=== PATIENT | female | born 1940 | race African-American/Black ===

== ENCOUNTER 2025-07-16 14:17 | Emergency (ER) | payer MEDICARE, MEDICAID, SELFPAY ==
--- OUTSIDE RECORDS SUMMARY | 2009-03-14 05:30 | XMS_ITS | Continuity of Care Document ---
Author Organization [facility] Address [id number] [place] [address] [address] [place] [address] Phone Care Team Providers Care Lock Plater Name Role Phone Yaya Cai Unavailable Unavailable Procedures Procedure Date Eye Exam & Treatment Eye Exam & Treatment Eye Exam, New Patient Advance Directives Directive Yes / No Effective Date File Name No Information Encounters Encounter Description Practice Location Reason(s) For Visit Diagnoses Date Provider Providers Copied on Encounter [facility], [address] [place] [address] [address], [place], [place], [id number], [place] tel:[phone] [facility] [place] No Information 1 9 Krishnasamy Yaya. [address] [facility] [address], [place], [address], [place]. tel:[phone] [facility], [address] [place] [address] [address], [place], [place], [id number], [place] tel:[phone] SEC [facility] No Information 8 Krishnasamy Yaya. [address] [facility] [address], [place], [address], [place]. tel:[phone] [facility], [address] [place] [address] [address], [place], [place], [id number], [place] tel:[phone] [facility] [place] No Information 4200 7 Greg Woody. [address] [facility] [place], [id number], [place]. tel:[phone] Family History Family Member Type Diagnosis Age At Onset No Information Payers Payer name Insurance type Covered republican ID Nida carpenter(s) Medicaid [facility] [id number] Social History Type Description Quantity Date Captured Comments Sex Female Smoking Status No Information Chief Complaint And Reason For Visit No Information Reason For Referral Reason For Referral No Information History Of Present Illness Encounter Date Complaint History Of Prese nt Illness No Information Functional Status Date Functional Assessmen t No Information Instructions Date Instruction Additional Infor mation No Information Assessments Type Assessment Date No Information Patient Care Teams Name Effective Dates (start - stop) Status Members No Information
--- OUTSIDE RECORDS SUMMARY | 2009-03-14 05:30 | XMS_ITS | Continuity of Care Document ---
Author Organization [facility] Address [address] [place] [address] [address] [place] [address] Phone Care Team Providers Care Rapid Transit Operator Name Role Phone Yaya Cai Unavailable Unavailable Procedures Procedure Date Eye Exam & Treatment Eye Exam & Treatment Eye Exam, New Patient Advance Directives Directive Yes / No Effective Date File Name No Information Encounters Encounter Description Practice Location Reason(s) For Visit Diagnoses Date Provider Providers Copied on Encounter [facility], [address] [place] [address] [address], [place], [place], [id number], [place] tel:[phone] [facility] [place] No Information 1 9 Krishnasamy Yaya. 2421 [facility] [address], [place], [address], [place]. tel:[phone] [facility], [address] [place] [address] [address], [place], [place], [id number], [place] tel:[phone] SEC [facility] No Information 8 Krishnasamy Yaya. [address] [facility] [address], [place], [address], [place]. tel:[phone] [facility], [address] [place] [address] [address], [place], [place], [id number], [place] tel:[phone] [facility] [place] No Information 4200 7 Greg Woody. [address] [facility] [place], [id number], [place]. tel:[phone] Family History Family Member Type Diagnosis Age At Onset No Information Payers Payer name Insurance type Covered libertarian ID Nida carpenter(s) Medicaid [facility] [id number] Social History Type Description Quantity Date Captured [...]
--- OUTSIDE RECORDS SUMMARY | 2024-01-16 07:30 | XMS_ITS ---
Author Organization [facility] Address [address] [facility] [address] [place] [address] Care Team Providers Care Anime Artist Name Role Phone Brady Chas Unavailable [phone] Encounters Encounter Location Date Provider Diagnosis [facility] [address] [facility] [address] [place] [address] 01/16/2024 Chas Abreu Plan Of Treatment No Information Progress Notes * ANNITA SESAYOB: 0 (84 yo F)Acc No.[id number]:01/16/2024 Progress Notes Patient: IAM SALOMON Provider: Estela BEY MD, Davon.Gabriel.C.P, F.A.S.N. :1940 A ge:83 Y S ex:Female Date:01/16/2024 Address:[address] [place], [place] [id number] Subjective: * Chief Complaints: * * Medical History: Objective: * Vitals: Assessment: Plan: * Treatment: * Billing Information: * Visit Code: * Procedure Codes: * Electronic signature of Isak Abreu MD on 07/16/2025 at 02:19 PM CDT Sign off status: Pending * Provider: Estela BEY MD, F.Gabriel.C.P, F.A.S.N. Date: 01/16/2024 Generated for Printing/Faxing/eTransmitting on: 07/16/2025 02:19 PM CDT
--- OUTSIDE RECORDS SUMMARY | 2025-06-20 06:03 | XMS_ITS | Continuity of Care Document ---
Author Organization [facility] Address [address] [place] [phone] Phone Care Team Providers Care Boat Cleaning Supervisor Name Role Phone James BOWLES FACC, Usman Unavailable Unavailab le James BOWLES FACC, Usman Unavailable Unavailab le Procedures Procedure Date PM/ICD REMOTE TECH SERV PM DEVICE INTERROGATE REMOTE ICM DEVICE INTERROGAT REMOTE Advance Directives Directive Yes / No Effective Date File Name No Information Encounters Encounter Description Practice Location Reason(s) For Visit Diagnoses Date Provider Providers Copied on Encounter [facility], [address] [place] [address], [id number], tel:[phone] [facility] [place] Presence of cardiac pacemaker James Hernandez. [address] [place], [place] [address], [place], [id number], . tel:[phone] Referring Provider: David Ramirez, [facility] [place], [address]. tel:[phone] lting Provider: David Ramirez, [facility] [place], [address]. tel:[phone] [facility], [address] [place] [address], [id number], tel:[phone] [facility] [place] Presence of cardiac pacemaker James Hernandez. [facility] [place], [id number], . tel:[phone] Referring Provider: David [address], [place], [address]. tel:[phone] lting Provider: [address], [place], [address]. tel:[phone] Family History Family Member Type Diagnosis Age At Onset No Information Payers Payer name Insurance type Covered republican ID Authoriza tion(s) AARP MEDICARE ADVANTAGE [place]MO [place] [id number] Social History Type Description Quantity Date Captured [...]
--- OUTSIDE RECORDS SUMMARY | 2025-06-20 06:03 | XMS_ITS | Continuity of Care Document ---
Author Organization [facility] Address [address] [place] [address] Phone Care Team Providers Care Travel Agent Name Role Phone James BOWLES FACC, Usman Unavailable Unavailab le James BOWLES FACC, Usman Unavailable Unavailab le Procedures Procedure Date PM/ICD REMOTE TECH SERV PM DEVICE INTERROGATE REMOTE ICM DEVICE INTERROGAT REMOTE Advance Directives Directive Yes / No Effective Date File Name No Information Encounters Encounter Description Practice Location Reason(s) For Visit Diagnoses Date Provider Providers Copied on Encounter [facility], [address] [place] [address], [id number], tel:[phone] [facility] [place] Presence of cardiac pacemaker James Hernandez. [address] [place], [place] [address], [place], [id number], . tel:[phone] Referring Provider: David Ramirez, [facility] [place], [address]. tel:[phone] lting Provider: David Ramirez, [facility] [place], [address]. tel:[phone] [facility], [address] [place] [address], [id number], tel:[phone] [facility] [place] Presence of cardiac pacemaker James Hernandez. [facility] [place], [id number], . tel:[phone] Referring Provider: David [address], [place], [address]. tel:[phone] lting Provider: [address], [place], [address]. tel:[phone] Family History Family Member Type Diagnosis Age At Onset No Information Payers Payer name Insurance type Covered green party ID Authoriza tion(s) [place]AGE [place] [id number] Social History Type Description Quantity Date Captured [...]
--- OUTSIDE RECORDS SUMMARY | 2025-07-16 14:19 | XMS_ITS | Clinical Summary ---
Author Organization [facility] Address [address] [address] Care Team Providers Care Door Repairman Name Role Phone Kirk Amanda MD Primary Care Provider [phone] Allergies Active Allergy Reactions Criticality Noted Date Comments Craig Inhibitors Other (See comments) Low 08/04/2017 Reaction: Amlodipine Vomiting Low 07/26/2014 Aspirin Swelling Medium 01/17/2021 Nifedipine Other (See comments) Low 03/01/2010 Reaction: Nitro Unknown Low 06/30/2014 Nitroglycerin Other (See comments) Low 08/04/2017 Reaction: Penicillin Unknown Low 03/01/2010 Penicillins Unknown 08/04/2017 Propoxyphene Unknown Low 03/01/2010 Valsartan Other (See comments) Low 08/04/2017 Reaction: Medications acetaminophen (TYLENOL) 325 mg tablet Take 2 tablets (650 mg total) by mouth every 6 (six) hours as needed for pain Active atorvastatin (LIPITOR) 40 mg tablet Take 1 tablet (40 mg total) by mouth nightly 30 tablet 3 Active calcitRIOL (ROCALTROL) 0.25 mcg capsule Take 1 capsule (0.25 mcg total) by mouth daily 30 capsule [address] (PROTONIX) 40 mg EC tablet Take 1 tablet (40 mg total) by mouth 2 (two) times a day 60 tablet 3 Active melatonin 5 mg tablet Take 1 tablet (5 mg total) by mouth daily Active furosemide (LASIX) 40 mg tablet Take 0.5 tablets (20 mg total) by mouth daily 30 tablet 1 3 Active ergocalciferol (Vitamin D2) 50,000 unit capsule Take 1 capsule (50,000 Units total) by mouth once a week Active traZODone (DESYREL) 50 mg tablet Take 1 tablet (50 mg total) by mouth nightly Active venlafaxine (EFFEXOR) 50 mg tablet Take 1 tablet (50 mg total) by mouth daily Active diclofenac sodium (VOLTAREN) 1 % gel Apply 2 g topically 4 (four) times a day as needed Active oxygenIndicatio ns:Dyspnea Inhale 2 L/min continuously Active hydrocortisone 2.5 % cream Apply topically 2 (two) times a day 30 g 1 4 Active metFORMIN (GLUCOPHAGE) 500 mg tablet 4 Active fluticasone-ume clidin-vilanter (TRELEGY ELLIPTA) 100-62.5-25 mcg inhaler Inhale 1 puff daily 1 each 4 Active metoprolol XL (TOPROL-XL) 100 mg 24 hr tablet Take 1 tablet (100 mg total) by mouth daily 4 Active ramelteon (ROZEREM) 8 mg tabletIndicatio ns:Sleep-Onset Insomnia Take 1 tablet (8 mg total) by mouth nightly 30 tablet 11 4 Active albuterol HFA (PROVENTIL HFA,VENTOLIN HFA,PROAIR HFA) 90 mcg/actuation inhaler Inhale 2 puffs every 6 (six) hours as needed for wheezing 4 Active Active Problems Problem Noted Date Diagnosed Date Anemia 11/19/2024 Gastrointestinal hemorrhage associated with anorectal source 07/02/2024 Gastrointestinal hemorrhage 07/02/2024 Rectal pain 12/16/2023 Assessment & Plan (12/16/2023 3:31 PM FLAT FOLDER): Patient with rectal pain. She thinks it is secondary to hemorrhoids. Will start her on Anusol cream 3 times daily and make a referral to see alteration hand for further evaluation. Patient denied any rectal bleeding. Chronic respiratory failure with hypoxia 024 Assessment & Plan (12/16/2023 3:32 PM FLAT FOLDER): Patient is maintained on oxygen by nasal cannula at 2 liters/minute Atrial fibrillation with RVR 06/10/2023 Centrilobular emphysema 03/19/2023 Assessment & Plan (12/16/2023 3:30 PM FLAT FOLDER): Continue Symbicort Assessment & Plan (09/15/2023 12:58 PM CDT): Continue Symbicort Assessment & Plan (05/05/2023 12:20 PM CDT): Continue Symbicort Assessment & Plan (04/03/2023 1:37 PM CDT): Resp status stable. Currently on RA. Assessment & Plan (03/24/2023 11:43 AM CDT): Continue O2, RT, nebs/inh as ordered. Resp status at baseline. Assessment & Plan (03/19/2023 3:39 PM CDT): history of smoking, CT chest : Mild centrilobular emphysema, bronchiectasis/bronchiolectasis, and bronchiolar wall thickening, unchanged. Mild scattered regions of confluent ground-glass opacities bilaterally, not significantly changed from the prior exam. Pulmonary recommend outpatient PFTs and split sleep study. Respiratory status currently stable. Continue albuterol p.r.n., Symbicort b.i.d., DuoNeb q.i.d.. Patient was on oxygen previously at home, currently on 1 L oxygen. Monitor respiratory status Bulge of lumbar disc without myelopathy 03/11/20 Lumbar stenosis with neurogenic claudication Chronic diastolic congestive heart failure 03/03 Assessment & Plan (12/16/2023 3:30 PM FLAT FOLDER): Continue Lasix and low-salt diet Assessment & Plan (09/15/2023 12:59 PM CDT): Continue Lasix and low-salt diet Assessment & Plan (05/05/2023 12:19 PM CDT): Continue Lasix and low-salt diet Assessment & Plan (04/10/2023 3:11 PM CDT): Compensated. Off O2, on RA. Continue Lasix daily. Check labs in am. Assessment & Plan (04/03/2023 1:35 PM CDT): Compensated. Continue Lasix, BB. On RA. Assessment & Plan (03/28/2023 12:45 PM CDT): Continues to be compensated with Lasix dosing at once daily. Continue to monitor. Assessment & Plan (03/24/2023 11:46 AM CDT): Remains compensated. Continue Lasix 40mg daily with close monitoring. Assessment & Plan (03/20/2023 2:10 PM CDT): Compensated at this time. Lasix on hold with JENNIFER. Recheck labs in am and if stable resume daily with monitoring. Assessment & Plan (03/18/2023 8:41 PM CDT): Patient presented in ER due to shortness of breath. CT chest findings may represent small airway or vascular disease versus edema. ECHO 03/16: moderate concentric LVH, EF = 65-70%. The right ventricular systolic function is normal. Treated with IV diuretics. Continue Lasix 40 mg b.i.d. Coreg. Monitor lytes, weight renal function. Follows up with her last chalker, Dr. Bradley in [place] Assessment & Plan (03/18/2023 1:52 PM CDT): Continue lasix BID, BB, O2. Wean O2 as able. Monitor lytes & renal fxn. BMI 30.0-30.9,adult 02/13/2023 History of peptic ulcer disease 02/13/2023 Assessment & Plan (02/13/2023 1:46 PM CDT): Patient is asymptomatic. Continue Protonix Dyslipidemia 05/13/2022 Assessment & Plan (12/16/2023 3:30 PM FLAT FOLDER): Controlled on current medications. Continue low-fat diet. Will continue to monitor . Assessment & Plan (09/15/2023 12:59 PM CDT): Controlled on current medications. Continue low-fat diet. Will continue to monitor . Assessment & Plan (05/05/2023 12:19 PM CDT): Controlled on current medications. Continue low-fat diet. Will continue to monitor . Assessment & Plan (03/19/2023 3:42 PM CDT): Continue Lipitor 40 mg daily, encourage low-fat/low carb diet Assessment & Plan (02/13/2023 12:55 PM CDT): Controlled on current medications. Continue low-fat diet. Will continue to monitor . Assessment & Plan (05/13/2022 12:21 PM CDT): Controlled on current medications. Continue low-fat diet. Will continue to monitor . Chronic atrial fibrillation 01/17/2021 Assessment & Plan (12/16/2023 3:30 PM FLAT FOLDER): Rate is controlled. She is off Eliquis because of rectal bleeding. Assessment & Plan (09/15/2023 5:52 PM CDT): Rate is controlled. She is off Eliquis because of rectal bleeding. Assessment & Plan (05/05/2023 12:19 PM CDT): Patient with chronic atrial fibrillation. We gave her samples of Eliquis. Advised to take her medications as prescribed. Advised to follow-up with her last chalker. Patient to check with her last chalker about other options if she can not afford Eliquis Assessment & Plan (03/19/2023 3:32 PM CDT): Heart rate controlled. Continue Eliquis 2.5 mg b.i.d., Coreg 25 mg b.i.d. follow-up cardiology, Dr. Bradley after discharge Assessment & Plan (02/13/2023 12:54 PM CDT): Continue Xarelto. Rate is controlled. Follow-up with the last chalker Assessment & Plan (05/13/2022 12:21 PM CDT): Continue Xarelto. Rate is controlled. Follow-up with the last chalker Assessment & Plan (01/23/2022 2:07 PM FLAT FOLDER): Heart rate is controlled. Resume Xarelto. Advised to follow up with the last chalker Assessment & Plan (03/22/2021 4:42 PM CDT): Rate is controlled and she is on Xarelto and followed by the last chalker Assessment & Plan (01/31/2021 11:56 AM FLAT FOLDER): Rate is not controlled. We added Cardizem. Continue carvedilol. She is on warfarin. Follow up with the last chalker. Assessment & Plan (01/17/2021 12:35 PM FLAT FOLDER): Patient is in AFib. She is on warfarin. She said somebody checks her protime on regular basis but she does not know who that nurse is an which doctor she works 4. I told her that she needs to find out and see what follows her INR. History of CVA (cerebrovascular accident) 2020 Assessment & Plan (12/16/2023 3:31 PM FLAT FOLDER): Patient with chronic dysarthria. Eliquis was stopped by the last chalker because of rectal bleeding. She is on baby aspirin daily. Assessment & Plan (09/15/2023 5:52 PM CDT): Patient with chronic dysarthria. Eliquis was stopped by the last chalker because of rectal bleeding. She is on baby aspirin daily. Assessment & Plan (02/13/2023 12:55 PM CDT): Patient with chronic dysarthria. Continue Xarelto daily Assessment & Plan (05/13/2022 9:01 AM CDT): Patient with chronic dysarthria. Continue Xarelto daily Assessment & Plan (01/23/2022 12:52 PM FLAT FOLDER): Patient has chronic dysarthria. She is maintained on Xarelto Assessment & Plan (03/22/2021 4:41 PM CDT): Patient has dysarthria. She is maintained on Xarelto. No bleeding. Discussed the importance of compliance with medications Assessment & Plan (01/31/2021 11:55 AM FLAT FOLDER): Continue current medications including warfarin. The patient does INR at home. It is done through home care nurse and we will try to reach to them to get the results Assessment & Plan (01/17/2021 12:35 PM FLAT FOLDER): Patient complains of headache and dizziness and she had couple of syncopal episodes when she tried to stand up. Will obtain MRI of the brain for further evaluation. Patient was advised to discuss her symptoms with her last chalker as well. Hypertensive kidney disease with stage 4 chronic kidney disease 12/19/2020 Assessment & Plan (09/15/2023 12:59 PM CDT): Continue current medications. Discussed low-salt diet. Discussed exercise on regular basis. Will continue to monitor Assessment & Plan (05/05/2023 12:20 PM CDT): Continue current medications. Discussed low-salt diet. Discussed exercise on regular basis. Will continue to monitor Assessment & Plan (02/13/2023 12:55 PM CDT): Continue current medications. Discussed low-salt diet. Discussed exercise on regular basis. Will continue to monitor Assessment & Plan (05/13/2022 9:01 AM CDT): Continue current medications. Discussed low-salt diet. Discussed exercise on regular basis. Will continue to monitor Assessment & Plan (01/23/2022 2:07 PM FLAT FOLDER): Will resume all her medications. Continue low-salt diet Assessment & Plan (03/22/2021 4:42 PM CDT): Will add amlodipine 5 mg daily for better control of high blood pressure Assessment & Plan (01/31/2021 11:56 AM FLAT FOLDER): Blood pressure is elevated and the patient has tachycardia. Will add Cardizem 120 mg daily and she will follow-up with last chalker Assessment & Plan (01/17/2021 12:35 PM FLAT FOLDER): Continue current medications. Discussed low-salt diet. Discussed exercise on regular basis. Will continue to monitor Wide-complex tachycardia Sick sinus syndrome Anticoagulation management encounter Lumbar radiculopathy Assessment & Plan (04/10/2023 3:12 PM CDT): Pain controlled. Not current receiving tx. Was issued NOMNC. SS working on dcp. Assessment & Plan (04/01/2023 1:26 PM CDT): Pain controlled. DCP 04/04. Walking 200ft with SBA. Fu with Pain Management outpt. Assessment & Plan (03/24/2023 11:47 AM CDT): Continue PT/OT. Progressing with tx. Walking 150ft with ww Assessment & Plan (03/19/2023 3:27 PM CDT): status post epidural steroid injection on 03/11/[address] Berg. Continue gabapentin + [place]. Pain overall controlled. Monitor Assessment & Plan (03/18/2023 1:53 PM CDT): status post epidural steroid injection on 03/11/[address] Berg. Continue gabapentin + Severn. Stage 4 chronic kidney disease Assessment & Plan (12/16/2023 3:31 PM FLAT FOLDER): Avoid NSAIDs and nephrotoxins and follow-up with the purchasing director Assessment & Plan (09/15/2023 12:59 PM CDT): Avoid NSAIDs and nephrotoxins and follow-up with the purchasing director Assessment & Plan (05/05/2023 12:20 PM CDT): Avoid NSAIDs and nephrotoxins and follow-up with the purchasing director Assessment & Plan (04/10/2023 3:12 PM CDT): Repeat labs in am. Assessment & Plan (04/03/2023 1:36 PM CDT): At baseline. Continue to monitor & outpt Nephrology fu. Assessment & Plan (04/01/2023 1:28 PM CDT): Cr at baseline. Continue fu with nephrology outpt. Resolved Problems Problem Noted Date Diagnosed Date Resolved Date Radiculopathy, lumbar region 03/11/2023 03/18/2023 Duodenal ulcer 11/20/2022 03/18/2023 Pneumonia of right lower lob e due to infectious organism 11/05/2022 03/18/2023 Intractable abdominal pain 11/04/2022 0 03/18/2023 Overview (11/06/2022): Added automatically from request for surgery [id number] Vitamin D deficiency 01/23/2022 023 Assessment & Plan (03/19/2023 3:41 PM CDT): Vitamin-D 115 in 10/2022. Will recheck level next lab Assessment & Plan (01/23/2022 2:08 PM FLAT FOLDER): Continue vitamin-D 95638 units once a week Dermatitis 03/22/2021 04/01/2023 Assessment & Plan (03/22/2021 4:46 PM CDT): Patient was started on TMC cream 0.1% twice daily to be applied on her legs or couple of weeks Shortness of breath 01/17/2021 04/03/20 Assessment & Plan (03/19/2023 3:34 PM CDT): Pulmonary consulted inpatient, recommended outpatient PFTs and split sleep study. Continue albuterol Q 6 p.r.n., Assessment & Plan (03/18/2023 1:53 PM CDT): S/t CHF. Wean O2 as able. Assessment & Plan (03/22/2021 4:45 PM CDT): Patient was started on Lasix and she will have echocardiogram and follow-up with last chalker Assessment & Plan (01/17/2021 12:37 PM FLAT FOLDER): Patient complains of shortness breath with exertion. She is not in respiratory distress. She was advised to discuss her symptoms with her last chalker and purchasing director. I wonder if she has history of congestive heart failure. Will try to obtain her old record. Stage 3a chronic kidney disease 12/19/2020 03/18/2023 Assessment & Plan (02/13/2023 12:55 PM CDT): Avoid nephrotoxins. Follow-up with the purchasing director Assessment & Plan (05/13/2022 12:21 PM CDT): Avoid nephrotoxins. Follow-up with the purchasing director Assessment & Plan (01/23/2022 2:08 PM FLAT FOLDER): Managed by the purchasing director. Avoid nephrotoxins. I have advised to follow-up with the purchasing director Assessment & Plan (03/22/2021 4:42 PM CDT): Managed by the purchasing director Assessment & Plan (01/31/2021 11:56 AM FLAT FOLDER): Managed by the purchasing director Assessment & Plan (01/17/2021 12:35 PM FLAT FOLDER): Followed by the purchasing director Atypical chest pain 03/24/20 Acute kidney injury superimp osed on chronic kidney disease 04/01/2023 Assessment & Plan (03/28/2023 12:43 PM CDT): Labs not drawn 5/4 as ordered. Repeat ordered for am. Monitor. Assessment & Plan (03/24/2023 11:44 AM CDT): With elevated K. Improved at 1.7, prev 1.6. Continue Lasix 40mg daily. Continue to monitor closely. Assessment & Plan (03/20/2023 2:09 PM CDT): 1.6>2.3. Will hold Lasix. Push fluids. Recheck labs in am. Assessment & Plan (03/19/2023 3:28 PM CDT): Creatinine improved from 2.6>> 1.6. Labs from today pending. Avoid nephrotoxic drugs. Monitor BMP Assessment & Plan (03/18/2023 1:52 PM CDT): Normalized prior to transfer. Continue to monitor. Labs for am. Hyperkalemia 04/01/2023 Assessment & Plan (03/24/2023 11:44 AM CDT): K 5. Continue to monitor closely. Is not on any supplements. Lasix cut in half with JENNIFER. Monitor. Encounters Date Type Department Care Team Description 06/21/2025 Telephone [facility] at [address] [place] [address] Gurmeet Cabrera MD from Last 3 Months Immunizations Immunization Administration Dates Next Due Influenza, Quadrivalent, Hig h Dose, Preservative Free, Intrr 10/31/2020 Influenza, Trivalent, High D ose, Split, Preservative Free, Intramuscular 12/14/2018,10/03/2017,09/19/2016 Influenza, Trivalent, IM (MDV) 11/11/2014 Influenza, Unspecified 09/09/2023 Pneumococcal Conjugate PCV 13 01/23/2022 Pneumococcal Conjugate Pcv20 12/16/2023 Pneumococcal Polysaccharide PPV23 09/09/2023 Surgical History Surgery Date Site/Laterality Comments HYSTERECTOMY KIDNEY SURGERY Left kidney removed KNEE SURGERY L knee BACK SURGERY CARDIAC PACEMAKER PLACEMENT 02/08/2013 Left Medical History Medical History Date Comments HTN (hypertension) Sleep difficulties Stroke (HCC) Chronic kidney disease Atrial fibrillation (HCC) Family History Medical History Relation Name Comments No Known Problems Father Diabetes Mother Hypertension Mother Relation Name Status Comments Father Mother Social History Tobacco Use Types Packs/Day Years Used Date Smoking Tobacco: Former Passive Smoke Exposure: Past Smokeless Tobacco: Never Tobacco Cessation:Counseling Given: Not Answered Alcohol Use Standard Drinks/Week Comments Never 0 (1 standard drink = 0.6 oz pur e alcohol) [facility] Utilities Answer Date Recorded In the past 12 months has e electric, gas, oil, or water [employer] threatened to shut off services in your home? Patient unable to answer 07/13/2024 Social Connection and Isolation Panel Answer Date Recorded In a typical week, how many times do you talk on the phone with family, friends, or neighbors? Patient unable to answer 07/13/2024 How often do you get togethe r with friends or relatives? Patient unable to answer 07/13/2024 How often do you attend [facility] or latter-day services? Patient unable to answer 07/13/2024 Do you belong to any clubs o r organizations such as shinto groups, unions, fraternal or athletic groups, or school groups? Patient unable to answer 07/13/2024 How often do you attend meet ings of the clubs or organizations you belong to? Patient unable to answer 07/13/2024 Are you , , di vorced, , never , or living with a partner? 07/13/2024 AUDIT-C Answer Date Recorded Q1: How often do you have a drink containing alcohol? Never 12/24/2024 Q2: How many drinks containi ng alcohol do you have on a typical day when you are drinking? Patient does not drink Q3: How often do you have si x or more drinks on one occasion? Never 12/24/2024 Overall Financial Resource Strain (CARDIA) Answe r Date Recorded How hard is it for you to pa y for the very basics like food, housing, medical care, and heating? Patient unable to answer 07/13/2024 PHQ-2 Answer Date Recorded PHQ-2 Total Score (If total score is 3 or more points, staff should administer the PHQ-9) 6 12/16/2023 Hunger Vital Sign Answer Date Recorded Within the past 12 months, y ou worried that your food would run out before you got the money to buy more. Patient unable to answer 07/13/2024 Within the past 12 months, t he food you bought just didn't last and you didn't have money to get more. Patient unable to answer 07/13/2024 PRAPARE - Transportation Answer Date Re corded In the past 12 months, has l ack of transportation kept you from medical appointments or from getting medications? Patient unable to answer 07/13/2024 In the past 12 months, has l ack of transportation kept you from meetings, work, or from getting things needed for daily living? Patient unable to answer 07/13/2024 Housing Stability Vital Sign Answer Go e Recorded In the last 12 months, was t here a time when you were not able to pay the mortgage or rent on time? No 05/01/2023 In the last 12 months, how many places have you lived? 1 05/01/2023 In the last 12 months, was t here a time when you did not have a steady place to sleep or slept in a fdc (including now)? No 05/01/2023 Housing Stability Vital Sign Answer Go e Recorded In the last 12 months, was t here a time when you were not able to pay the mortgage or rent on time? Patient unable to answer 07/13/2024 In the past 12 months, how m any times have you moved where you were living? 0 07/13/2024 At any time in the past 12 m [facility], were you homeless or living in a fdc (including now)? Patient unable to answer 07/13/2024 Personal Safety Answer Date Recorded Have you ever been in or are you currently in a harmful physical or emotional relationship or is someone making you feel afraid or unsafe? Denies 12/24/2024 Comments No Sex and Gender Information Value Date Recorded Sex Assigned at Not on file Legal Sex Female 11:52 PM FLAT FOLDER Gender Identity Not on file Sexual Orientation Not on file Obstetrics History Last Filed Vital Signs Vital Sign Reading Time Taken Comments Blood Pressure 158/72 12/24/2024 2:40 PM FLAT FOLDER Pulse 80 12/24/2024 2:40 PM FLAT FOLDER Temperature 36.6 C (97.8 F) 12/24/2024 2:13 PM FLAT FOLDER Respiratory Rate 14 12/24/2024 2:40 PM FLAT FOLDER Oxygen Saturation 97% 12/24/2024 2:40 PM FLAT FOLDER Inhaled Oxygen Concentration - - Weight 97.1 kg (214 lb) 12/24/2024 12:00 PM FLAT FOLDER Height 165.1 cm (5' 5) 07/02/2024 6:40 PM CDT Body Mass Index 35.61 07/02/2024 6:40 PM CDT Plan of Treatment Health Maintenance Due Date Last Done Comments Osteoporosis Screening-Bone Density Scan 1940 Dilated Eye Exam 1939 Foot Exam 1939 DTaP/Tdap/Td Vaccine (1 - Tdap) 1950 Hepatitis B Screening 1957 Zoster Vaccine (1 of 2) 1989 Well Visit 65+ 2004 Albumin Creatinine Ratio, Urine 11/13/2023 2 Lipid Panel 06/10/2024 06/10/2023, 0312/2021, 01/17/2021 Covid-19 Vaccine (4 - 2023-2 5 season) 2024 08/18/2022, 03/15/2021, 02/15/2021 Depression Screening 12/16/2024 12/16/2023, 12/16/2023, 09/15/2023, Additional history exists Hemoglobin A1C 01/02/2025 07/02/2024, 08/0 07/2024, 06/10/2023, Additional history exists eGFR 07/12/2025 07/12/2024, 06/24, 07/10/2024, Additional history exists Influenza Vaccine (#1) 2025 3, 10/31/2020, 12/14/2018, Additional history exists Fall Risk Assessment 12/24/2025 12/24/2024, 12/16/2023, 09/15/2023, Additional history exists Pneumococcal vaccine 65+ Completed 024, 09/09/2023, 01/23/2022 Procedures Procedure Name Priority Date/Time Associated Diagnosis Comments EGFR Routine 07/12/2024 10:24 PM CDT HEMOGLOBIN A1C Timed 07/02/2024 4:48 PM CDT LIPID PANEL Routine 06/10/2023 11:53 PM CDT ALBUMIN CREATININE RATIO, URINE Routine 11/13/2022 9:06 PM FLAT FOLDER from Last 3 Months or Most Recently Relevant to Health Maintenance Results * (ABNORMAL) eGFR (07/12/2024 10:24 PM CDT) eGFR 33(L) >=60 mL/min/1. 73 m2 Comment: Interpretive Data Reference Interval Normal >/= 90 mL/min/1.73m2 Mildly decreased* 60 - 89 mL/min/1.73m2 Mildly to moderately decreased 45 - 59 mL/min/1.73m2 Moderately to severely decreased 30 - 44 mL/min/1.73m2 Severely decreased 15 - 29 mL/min/1.73m2 Kidney Failure < 15 mL/min/1.73m2 *Relative to young adult level Estimated glomerular filtration rate is determined by the 2020 CKD-EPI equation recommended by the National Kidney Foundation (A Unifying Approach to GFR Estimation: Recommendations of the NKF-ASK Task Force on Reassessing the Inclusion of Race in Diagnosing Kidney Disease, JASN 2020). The CKD-EPI equation should not be used for patients with unstable renal function and has not been validated in children and those over 70. Current interpretive data was last reviewed 2021. Blood 07/12/2024 10:2 4 PM CDT 07/12/2024 10:51 PM CDT us Zia Yu MD LAB BLOOD ORDERABL ES Final Result [facility] Department of [place] [address] * (ABNORMAL) Hemoglobin A1c (07/02/2024 4:48 PM CDT) Hgb A1C 6.0(H) 4.0 - 5.6 % Estimated Average Glucose 126 mg/dL [facility] Comment: The ADA recommends reporting an estimated Average Glucose (eAG) with all Hemoglobin A1c results using the equation derived from a study of 507 normal and diabetic adults. Minority populations were underrepresented and children were not included. (Diabetes Care 2020; 43(S1): S66-S76). The eAG is not equivalent to a fasting glucose. Blood 07/02/2024 4:48 PM CDT 07/02/2024 5:10 PM CDT us Jocelyn Valdes MD LAB BLOOD ORDERABLES Final Resul t [facility] Department of [place] [address] * (ABNORMAL) Lipid panel (06/10/2023 11:53 PM CDT) Pathologist [facility] Cholesterol 133 30 - 199 mg/dL [facility] [facility] Comment: Interpretive Data Ages < or = 19 years Acceptable: <170 mg/dL Borderline high: 170-199 mg/dL High: >or= 200 mg/dL Ages > or = 20 years Desirable: <200 mg/dL Borderline high: 200-239 mg/dL High: >or= 240 mg/dL Literature References: 1. Expert Panel on Integrated Guidelines for Cardiovascular Health and Risk Reduction in Children and Adolescents. Pediatrics 2011;128:S213 2. NCEP Expert Panel. Circulation 2004;110:227 Current Interpretive Data was last revised on 2018. Triglycerides 68 <=149 mg/dL [facility] Comment: Interpretive Data Ages < or = 9 years Acceptable: <75 mg/dL Borderline high: 75-99 mg/dL High: >or= 100 mg/dL Ages 10 to 20 years Acceptable: <90 mg/dL Borderline high: 90-129 mg/dL High: >or= 130 mg/dL Ages > or = 20 years Desirable: <150 mg/dL Borderline high: 150-199 mg/dL High: 200-499 mg/dL Very high: >or= 499 mg/dL Literature References: 1. Expert Panel on Integrated Guidelines for Cardiovascular Health and Risk Reduction in Children and Adolescents. Pediatrics 2011;128:S213 2. NCEP Expert Panel. Circulation 2004;110:227 Current Interpretive Data was last revised on 2018. HDL 38(L) >=40 mg/dL [facility] Comment: Interpretive Data Ages < or = 19 years Acceptable: >45 mg/dL Borderline low: 40-45 mg/dL Low: <40 mg/dL Ages > or = 20 years Desirable: >or= 60 mg/dL Low: <40 mg/dL Literature References: 1. Expert Panel on Integrated Guidelines for Cardiovascular Health and Risk Reduction in Children and Adolescents. Pediatrics 2011;128:S213 2. NCEP Expert Panel. Circulation 2004;110:227 Current Interpretive Data was last revised on 2018. LDL, calculated 81 <=129 mg/dL [facility] Comment: Interpretive Data Ages < or = 19 years Acceptable: <110 mg/dL Borderline high: 110-129 mg/dL High: >or= 130 mg/dL Ages > or = 20 years Optimal: <100 mg/dL Near optimal: 100-129 mg/dL Borderline high: 130-159 mg/dL High: >160 mg/dL Literature References: 1. Expert Panel on Integrated Guidelines for Cardiovascular Health and Risk Reduction in Children and Adolescents. Pediatrics 2011;128:S213 2. NCEP Expert Panel. Circulation 2003;110:227 Current Interpretive Data was last revised on 2018. Non-HDL Cholesterol 95 mg/dL [facility] Comment: Interpretive Data Ages < or = 19 years Acceptable: <120 mg/dL Borderline high: 120-144 mg/dL High: >145 mg/dL Ages > or = 20 years When triglycerides are >200 mg/dL, Non-HDL cholesterol is a secondary target of therapy with treatment goals that are 30 mg/dL greater than the LDL cholesterol target. Literature References: 1. Expert Panel on Integrated Guidelines for Cardiovascular Health and Risk Reduction in Children and Adolescents. Pediatrics 2011;128:S213 2. NCEP Expert Panel. Circulation 2004;110:227 Current Interpretive Data was last revised on 2018. Chol/HDL ratio 4 [facility] Blood 06/10/2023 11:5 3 PM CDT 06/11/2023 12:45 AM CDT us César Fraser MD LAB BLOOD ORDERABLES Tosin l Result [facility] Department of Laboratories [place] [address] * Albumin Creatinine Ratio, Urine (11/13/2022 9:06 PM FLAT FOLDER) Albumin Ur <12.0 mg/L [facility] Comment: Interpretive Data No reference range established. Current interpretive data was last revised 2019. Creatinine Ur 182.0 mg/dL [facility] Comment: Interpretive Data No reference range established. Current interpretive data was last revised 2019. Albumin Creatinine Ratio, Ur <7 1 - 29 mg/g [facility] Urine 11/13/2022 9:06 PM FLAT FOLDER 11/13/2022 9:21 PM FLAT FOLDER us Garry Woo MD LAB URINE ORDERABLES Final Resu lt [facility] [address] [facility] Department [place] [address] from Last 3 Months or Most Recently Relevant to Health Maintenance Insurance [facility] MEDICARE ADVANTAGE [facility] MEDICARE ADVANTAGE [employer] [facility] MEDICARE ADV[facility]AGE [facility] MEDIC[facility] ADVANTAGE Advance Directives For more information, please contact: [phone] * Full Code (Latest Code Status on File) Date Activated Date Inactivated Comments 07/02/2024 6:46 PM 07/13/2024 8:42 PM * Full Code Date Activated Date Inactivated Comments 06/10/2023 10:38 PM 06/17/2023 8:58 PM * Full Code Date Activated Date Inactivated Comments 03/12/2023 4:59 PM 03/17/2023 6:30 PM * Full Code Date Activated Date Inactivated Comments 11/07/2022 12:59 PM 11/16/2022 3:17 PM * Full Code Date Activated Date Inactivated Comments 11/05/2022 3:22 AM 11/07/2022 12:59 PM Care Teams Door Repairman Relationship Specialty Start Date End Date Kirk Amanda MD [address] [facility] [address] [address] PCP - General Internal Medicine 01/17/21
--- OUTSIDE RECORDS SUMMARY | 2025-07-16 14:19 | XMS_ITS | Patient Health Record ---
Author Organization [facility] Office Address [address] [facility] [address] [place] [address] Support Name Relationship Address Phone IAM SESAY Guarantor Unknown [phone] Reason For Referral No Information Medications Medication SIG (Take, Route, Fr equency, Duration) Notes Start Date End Date Status metOLazone 2.5 MG 1 tablet Orally Once a day; Duration: 90 days 06/04/2023 Active Problems Problem Type SNOMED Code ICD Code Onset Dates Problem Status W/U Status Risk Notes Problem Hyperglycemia due to type 2 diabetes mellitus (498440380911907) Type 2 diabetes mellitus with hyperglycemia (E11.65) Active confirmed Problem Secondary hyperparathyroidism (69372718) Secondary hyperparathyroid ism, not elsewhere classified (E21.1) Active confirmed Problem Anxiety disorder (943358435) Anxiety disorder, unspecified (F41.9) Active confirmed Problem Essential hypertension (20502943) Essential (primary) hypertension (I10) Active confirmed Problem Gout (23866063) Gout, unspecified (M10.9) Active confirmed Problem Renal osteodystrophy (32302954) Renal osteodystrophy (N25.0) Active confirmed Problem Chronic fatigue syndrome (disorder) (22732325) Chronic fatigue, unspecified (R53.82) Active confirmed Problem Chronic kidney disease stage 3A (disorder) (218088923) Chronic kidney disease, stage 3a (N18.31) Active confirmed Plan Of Treatment No Information
--- OUTSIDE RECORDS SUMMARY | 2025-07-16 14:19 | XMS_ITS | Clinical Summary ---
Author Organization [facility] Address [address] [place] [address] Care Team Providers Care Youth Accommodation Support Worker Name Role Phone David Ramirez MD Primary Care Provider [phone] Source Comments [facility],non-owned Affiliates and Associated Physician Practices is amultiple site organization consisting of ambulatory clinics and hospital sitesin [place], [place], [place] and [place]. This disclosure is being madepursuant to the Care Everywhere program and may not contain all information available regarding this patient. Last updated 18.[facility] Allergies Active Allergy Reactions Criticality Noted Date Comments Craig Inhibitors Swelling 03/12/2019 Aspirin Unknown 03/12/2019 Nitroglycerin Swelling 03/12/2019 Penicillins Anaphylaxis High 03/13/2019 Nifedipine Unknown 03/12/2019 Propoxyphene Other 08/04/2024 Patient does not know what reaction she got Valsartan Other 08/04/2024 Patient does not know Medications * Be aware that medications may not be up to date on this document. Alwaysverify current medications with the patient. vitamin D, ergocalciferol, (DRISDOL) 08473 UNITS capsule Take 1 (one) capsule by mouth every 7 days Active atorvastatin (LIPITOR) 40 MG tablet Take 1 tablet by mouth once daily 90 tablet 2 03/16/20 19 Active pantoprazole EC (PROTONIX) 40 MG tablet Take 1 tablet by mouth once daily 90 tablet 3 03/16/20 19 Active calcitriol (ROCALTROL) 0.25 MCG capsule Take 1 (one) capsule by mouth once daily Active amLODIPine (NORVASC) 10 MG tablet Take 1 tablet by mouth at bedtime 30 tablet 02/13/20 Active Additional Information Patient not taking.Reported on 08/04/2024 polyethylene glycol 3350 (MIRALAX) packet Take 17 g by mouth once daily as needed for Constipation 30 packet 02/13/20 Active Additional Information Patient not taking.Reported on 08/04/2024 metoprolol succinate XL 24hr (TOPROL XL) 100 MG tablet Take 1 tablet by mouth once daily 30 tablet 1 02/18/20 Active warfarin (COUMADIN) 2.5 MG tabletIndications: Atrial fibrillation, unspecified type (HCC),Cerebrovascu lar accident (CVA), unspecified mechanism (HCC),exterminator helper (current) use of anticoagulants Take 1 tablet every evening except on and Fridays to 2 tablets 152 tablet 3 04/26/20 Active Additional Information Patient not taking.Reported on 08/04/2024 prochlorperazine (Compazine) 5 MG tablet Take 1 (one) tablet by mouth every 8 hours as needed for Nausea/Vomiting (headaches) 30 tablet 03/02/20 Active Additional Information Patient not taking.Reported on 08/04/2024 acetaminophen (Tylenol) 500 MG tablet Take 1 (one) tablet by mouth every 4 hours as needed for Fever, Pain or Headache Maximum allowable Acetaminophen amount = 4 Grams (4000 mg) / 24 hours. 60 tablet 03/02/20 24 Active albuterol HFA (Proventil; Ventolin; Proair) 108 (90 Base) MCG/ACT inhaler Inhale 2 (two) puffs by mouth every 6 hours as needed 07/13/20 24 Active Eliquis 2.5 MG tablet Take 1 (one) tablet by mouth 2 times daily 02/27/20 24 Active furosemide (Lasix) 20 MG tablet Take 1 (one) tablet by mouth once daily 02/27/20 24 Active metFORMIN (Glucophage) 500 MG tablet Take 1 (one) tablet by mouth once daily 01/23/20 24 Active traZODone (Desyrel) 50 MG tablet Take 1 (one) tablet by mouth at bedtime Active melatonin (Melatonin Maximum Strength) 5 MG tablet Take 1 (one) tablet by mouth once daily Active Active Problems Problem Noted Date Diagnosed Date Anticoagulant long-term use 02/24/2020 Atrial fibrillation, unspecified type 02/24/2020 Dizziness 02/10/2020 Abdominal pain, generalized 03/12/2019 Altered mental status 03/12/2019 JENNIFER (acute kidney injury) 03/12/2019 Cerebrovascular accident (CVA) 03/12/2019 Fall Syncope Elevated serum creatinine Essential hypertension Acute encephalopathy Acute renal failure superimp osed on stage 3 chronic kidney disease Encounters Date Type Department Care Team Description 05/19/2025 Patient Outreach [facility] Medical [facility] - Care Coordination [address] [place] [address] Jamison Stephenson, PEDIATRIC ASSISTANT ER UC Follow-up 05/18/2025 7:30 AM CDT - 05/18/2025 2:54 PM CDT Emergency [facility] [address] [place] [address] Wilson Herr MD Chest pain, unspecified type; Rectal bleeding; Lower abdominal pain Discharge Disposition: Home or Self Care 05/17/2025 Travel from Last 3 Months Social History Tobacco Use Types Packs/Day Years Used Date Smoking Tobacco: Never Smokeless Tobacco: Never Alcohol Use Standard Drinks/Week Comments Not Currently 0 (1 standard drink = 0.6 oz pur e alcohol) AUDIT-C Answer Date Recorded Frequency of Alcohol Consumption Never 02/11/2020 Average Number of Drinks Not on file 020 Frequency of Binge Drinking Never 01/23 Comments Unknown Sex and Gender Information Value Date Recorded Sex Assigned at Not on file Legal Sex Female 5:50 PM CDT Gender Identity Not on file Sexual Orientation Not on file Last Filed Vital Signs Vital Sign Reading Time Taken Comments Blood Pressure 163/99 05/18/2025 12:44 PM CDT Pulse 109 05/18/2025 12:44 PM CDT Temperature 36.3 C (97.4 F) 05/18/2025 6:02 AM CDT Respiratory Rate 16 05/18/2025 6:02 AM CDT Oxygen Saturation 99% 05/18/2025 12:44 PM CDT Inhaled Oxygen Concentration - - Weight 99.8 kg (220 lb) 05/17/2025 3:18 PM CDT Height 170.2 cm (5' 7) 05/17/2025 3:18 PM CDT Body Mass Index 34.46 05/17/2025 3:18 PM CDT Plan of Treatment Health Maintenance Due Date Last Done Comments BONE DENSITY TESTING 1940 DTAP/TDAP/TD VACCINES (1 - Tdap) 1958 PNEUMOCOCCAL VACCINE 50+ (1 of 1 - PCV) 1989 ZOSTER VACCINE (1 of 2) 1989 Respiratory Syncytial Virus (RSV) Vaccine Pt: or over 60 yrs (1 - 1-dose 75+ series) 2014 COVID-19 VACCINE (4 - season) 2024 08/18/2022, 03/15/2021, 02/15/2021 DEPRESSION SCREENING 11/24/2024 MEDICARE AWV CALENDAR YEAR 2024 INFLUENZA VACCINE (#1) 2025 3, 10/31/2020, 12/14/2018, Additional history exists HEPATITIS B VACCINE Aged Out No longe r eligible based on patient's age to complete this topic HIB VACCINE Aged Out No longer eligi ble based on patient's age to complete this topic HPV VACCINE Aged Out No longer eligi ble based on patient's age to complete this topic MENINGOCOCCAL (Group B) VACCINE SHARED DECISION-MAKING Aged Out No longer eligible based on patient's age to complete this topic MENINGOCOCCAL GROUPS A/C/Y/W VACCINE Aged Out No longer eligible based on patient's age to complete this topic Procedures Procedure Name Priority Date/Time Associated Diagnosis Comments CARDIAC EKG ORDER 05/19/2025 9:5 9 AM CDT HGB HCT PANEL STAT 05/18/2025 11:25 AM CDT URINALYSIS W/MICROSCOPIC NO CULTURE STAT 05/18/2025 11:[address] ANGIO ABDOMEN PELVIS STAT 05/18/2025 10:13 AM CDT Rectal bleeding LACTIC ACID BLOOD REFLEX TO REPEAT STAT 05/18/2025 9:25 AM CDT TROPONIN-I HIGH SENSITIVE REFLEX 1HOUR Timed 05/17/2025 6:06 PM CDT EKG 12-LEAD STAT 05/17/2025 5:51 PM CDT Chest pain, unspecified type XR CHEST 2VW STAT 05/17/2025 5:06 PM CDT Chest pain, unspecified type PT-INR [facility] STAT 05/17/2025 4:54 PM CDT TROPONIN-I HIGH SENSITIVE BASELINE + 1HR STAT 05/17/2025 4:54 PM CDT MAGNESIUM BLOOD STAT 05/17/2025 4:54 PM CDT COMPREHENSIVE METABOLIC PANEL STAT 05/17/2025 4:54 PM CDT CBC W AUTO DIFFERENTIAL STAT 05/17/2025 4:54 PM CDT from Last 3 Months Results * CARDIAC EKG ORDER (05/19/2025 9:59 AM CDT) Narrative 05/19/2025 9:59 AM CDT Ordered by an unspecified provider. us Scanned Document CARDIAC SERVICES ORDERABLES Fin al Result * (ABNORMAL) HGB HCT PANEL (05/18/2025 11:25 AM CDT) Hemoglobin 15.0 11.9 - 15.8 g/dL 05/18/2025 12:09 PM CDT [facility] Hematocrit 47.5(H) 34.8 - 46.1 % 05/18/2025 12:09 PM CDT [facility] Blood BLOOD SPECIMEN / Unknown Venipuncture / Unknown 05/18/2025 11:25 AM CDT 05/18/2025 11:50 AM CDT us Wilson Herr MD LAB - HEMATOLOGY ORDERABLES F inal Result [facility] [address] [place] [id number], [facility] [phone] * (ABNORMAL) URINALYSIS W/MICROSCOPIC NO CULTURE (05/18/2025 11:24 AM CDT) Color UA Yellow Yellow, Straw 05/18/2025 12:[address] [facility] Clarity UA Clear Clear 05/18/2025 12:[address] [facility] Glucose UA Normal Normal 05/18/2025 12:[address] [facility] Bilirubin UA Negative Negative 05/18/2025 12:[address] [facility] Ketone UA Negative Negative 05/18/2025 12:[address] [facility] Specific [place] UA 1.022 1.005 - 1.030 05/18/2025 12:[address] [facility] Blood UA Negative Negative 05/18/2025 12:[address] [facility] pH UA 7.0 5.0 - 8.0 05/18/2025 12:[address] [facility] Protein UA Negative Negative 05/18/2025 12:[address] [facility] Urobilinogen UA Normal Normal mg/dL 05/18/2025 12:[address] [facility] Nitrite UA Negative Negative 05/18/2025 12:[address] [facility] Leukocyte Esterase UA 75 JORGE/uL(A) Negative 05/18/2025 12:[address] [facility] RBC UA 3-5 0 - 5 # /hpf 05/18/2025 12:[address] [facility] WBC UA 6-10(A) 0 - 5 # /hpf 05/18/2025 12:[address] [facility] Bacteria UA None Seen None Seen 05/18/2025 12:[address] [facility] Squamous Epithelial Cells 3-5 0 - 5 /hpf 05/18/2025 12:[address] [facility] Urine URINE SPECIMEN OBTAINED BY CLEAN CATCH PROCEDURE / Unknown Collection / Unknown 05/18/2025 11:24 AM CDT 05/18/2025 11:46 AM [facility] Margot Valenzuela PA-C LAB - URINALYSIS SUSIE KEBEDE Final Result [facility] [address] [place] [address] [phone] * CT Angio Abdomen Pelvis (05/18/2025 10:13 AM CDT) Anatomical Region Laterality Modality Abdomen, Pelvis Computed Tomogra phy 05/18/2025 10:2 1 AM CDT Impressions 05/18/2025 2:10 PM CDT Impression: 1.No hemorrhage or extravasation of contrast identified within the visualized portions of the chest, abdomen, or pelvis. No evidence of active contrast extravasation into bowel lumen. 2.Indeterminate significance of tubular enhancement in the region of the right vaginal cuff seen only on the venous phase. Recommend clinical correlation. 3.Chronic appearing left-sided lumbar hernia containing loops of small bowel and the descending colon without evidence of strangulation. > Dictated by Isael Rush MD, MD (family medicine resident). IMartita MD have personally reviewed and interpreted this examination/study. > Interpreting Provider: Martita Wynn MD on 05/18/2025 2:10 PM Narrative 05/18/2025 2:10 PM CDT PROCEDURE: CT ANGIO ABDOMEN PELVIS, DATE/TIME OF EXAM: 05/18/2025 10:14 AM, LOCATION [facility] INDICATION: K62.5: Rectal bleeding ADDITIONAL CLINICAL INFORMATION: Ordering Provider Reason For Exam: lower GI bleeding Technologist Note: Additional: History of hemorrhoids status post banding November 2024 now with worsening rectal bleeding (chronic over years) as well as hematemesis. COMPARISON: None. TECHNIQUE: CT of the abdomen and pelvis was performed prior to and following the uneventful administration of 100 mL of Isovue 370 intravenous contrast according to an angiographic protocol. Three dimensional postprocessing was performed by the technologist and sent to the workstation for review. Findings: Examination is degraded by motion artifact. Abdominal aorta: There is no aortic dissection, intramural hematoma, penetrating atherosclerotic ulcer, or aneurysm. The aorta is normal in course and caliber. Abdominal aortic branches: Celiac axis: Atherosclerotic but patent without significant focal stenosis. Superior mesenteric artery: Atherosclerotic but patent without significant focal stenosis. Inferior mesenteric artery: Patent without significant focal stenosis. Right renal artery: Atherosclerotic origin but otherwise patent without stenosis. Left renal artery: Not seen. Right common iliac artery: Atherosclerotic but patent without significant focal stenosis. Right external iliac artery: Atherosclerotic but otherwise patent without stenosis. Right internal iliac artery: Atherosclerotic but patent without significant focal stenosis. Left common iliac artery: Atherosclerotic but patent without significant focal stenosis. Left external iliac artery: Atherosclerotic but otherwise patent without significant stenosis. Left internal iliac artery: Atherosclerotic but patent without significant focal stenosis. Lower Chest: There is atherosclerosis of the visualized thoracic aorta and extensive coronary arterial calcifications. Cardiac pacer leads terminating within the right atrium and right ventricle. There is mild cardiomegaly. Emphysematous changes are seen in the lungs with bilateral dependent atelectasis. Liver: Multiple hepatic granulomas and areas of focal fat are present. The liver otherwise appears normal. Gallbladder and Bile Ducts: The gallbladder is absent. No intrahepatic nor extrahepatic biliary duct dilation. Spleen: Multiple calcified granulomas are noted in the spleen, likely sequelae of prior granulomatous disease. There is a 1.2 x 1.3 x 1.2 cm well-circumscribed hypoattenuating focus with slightly greater than simple fluid attenuation and no significant enhancement on contrasted phases, likely a proteinaceous cyst. Pancreas: Normal. Adrenals: Normal. Kidneys: Motion artifact limits evaluation. The left kidney is absent. There are multiple cysts in the right kidney. No stones or hydronephrosis. Gastrointestinal: There is increased attenuation within the wall of the sigmoid colon seen on arterial phase (series 7, image 114) which is not seen on the subsequent venous phase nor is expansion of hyperattenuating material seen on venous phase which may represent opacification of the vessel or artifactual and is not favored to represent hemorrhage. Multiple loops of small bowel as well as the descending colon are seen within a large left sided lumbar hernia without evidence of strangulation. There is diverticulosis without evidence of diverticulitis. The appendix is visualized and appears normal. Mesentery/Peritoneum/Retroperitoneum: No free air or fluid within the abdomen pelvis. There is no lymphadenopathy. Bladder: Normal. Reproductive Organs: The uterus is absent. There is tubular enhancement in the region of the vaginal cuff/fornix seen on venous phase (series 11, image [id number]) of indeterminate significance. Bones: Bone windows demonstrate no suspicious lytic or blastic lesions. There are severe chronic degenerative changes in the spine and right greater than left hips. There are chronic deformities of the left 11th rib. No acute fractures identified. Soft tissues: There is a left-sided lumbar hernia which appears chronic. There is a 1.1 x 3.1 x 1.7 cm lipoma within the right abdominal oblique muscles. The remainder the soft tissues appear normal. Procedure Note Paige Wynn MD - 05/18/2025 PROCEDURE: CT ANGIO ABDOMEN PELVIS, DATE/TIME OF EXAM: 05/18/2025 10:14 AM, LOCATION [facility] INDICATION: K62.5: Rectal bleeding ADDITIONAL CLINICAL INFORMATION: Ordering Provider Reason For Exam: lower GI bleeding Technologist Note: Additional: History of hemorrhoids status post banding November 2024 now with worsening rectal bleeding (chronic over years) as well ashematemesis. COMPARISON: None. TECHNIQUE: CT of the abdomen and pelvis was performed prior to and following the uneventful administration of 100 mL of Isovue 370intravenous contrast according to an angiographic protocol. Three dimensional postprocessing was performed by the technologist and sent to the workstation for review. Findings: Examination is degraded by motion artifact. Abdominal aorta: There is no aortic dissection, intramural hematoma, penetrating atherosclerotic ulcer, or aneurysm. The aorta is normal in course and caliber. Abdominal aortic branches: Celiac axis: Atherosclerotic but patent without significant focalstenosis. Superior mesenteric artery: Atherosclerotic but patent withoutsignificant focal stenosis. Inferior mesenteric artery: Patent without significant focal stenosis. Right renal artery: Atherosclerotic origin but otherwise patent without stenosis. Left renal artery: Not seen. Right common iliac artery: Atherosclerotic but patent withoutsignificant focal stenosis. Right external iliac artery: Atherosclerotic but otherwise patentwithout stenosis. Right internal iliac artery: Atherosclerotic but patent withoutsignificant focal stenosis. Left common iliac artery: Atherosclerotic but patent without significant focal stenosis. Left external iliac artery: Atherosclerotic but otherwise patent without significant stenosis. Left internal iliac artery: Atherosclerotic but patent withoutsignificant focal stenosis. Lower Chest: There is atherosclerosis of the visualized thoracic aorta and extensive coronary arterial calcifications. Cardiac pacer leads terminating within the right atrium and right ventricle. There is mild cardiomegaly. Emphysematous changes are seen in the lungs with bilateral dependent atelectasis. Liver: Multiple hepatic granulomas and areas of focal fat are present. Theliver otherwise appears normal. Gallbladder and Bile Ducts: The gallbladder is absent. No intrahepatic nor extrahepatic biliary duct dilation. Spleen: Multiple calcified granulomas are noted in the spleen, likely sequelaeof prior granulomatous disease. There is a 1.2 x 1.3 x 1.2 cm well-circumscribed hypoattenuating focus with slightly greater thansimple fluid attenuation and no significant enhancement on contrasted phases, likely a proteinaceous cyst. Pancreas: Normal. Adrenals: Normal. Kidneys: Motion artifact limits evaluation. The left kidney is absent. There are multiple cysts in the right kidney. No stones or hydronephrosis. Gastrointestinal: There is increased attenuation within the wall of the sigmoid colon seenon arterial phase (series 7, image 114) which is not seen on the subsequent venous phase nor is expansion of hyperattenuating material seen onvenous phase which may represent opacification of the vessel or artifactual andis not favored to represent hemorrhage. Multiple loops of small bowel aswell as the descending colon are seen within a large left sided lumbar hernia without evidence of strangulation. There is diverticulosis withoutevidence of diverticulitis. The appendix is visualized and appears normal. Mesentery/Peritoneum/Retroperitoneum: No free air or fluid within the abdomen pelvis. There is no lymphadenopathy. Bladder: Normal. Reproductive Organs: The uterus is absent. There is tubular enhancement in the region of the vaginal cuff/fornix seen on venous phase (series 11, image [id number]) of indeterminate significance. Bones: Bone windows demonstrate no suspicious lytic or blastic lesions. Thereare severe chronic degenerative changes in the spine and right greater than left hips. There are chronic deformities of the left 11th rib. No acute fractures identified. Soft tissues: There is a left-sided lumbar hernia which appears chronic. There is a 1.1x 3.1 x 1.7 cm lipoma within the right abdominal oblique muscles. The remainder the soft tissues appear normal. Impression: 1.No hemorrhage or extravasation of contrast identified within the visualized portions of the chest, abdomen, or pelvis. No evidence ofactive contrast extravasation into bowel lumen. 2.Indeterminate significance of tubular enhancement in the region of the right vaginal cuff seen only on the venous phase. Recommend clinical correlation. 3.Chronic appearing left-sided lumbar hernia containing loops of small bowel and the descending colon without evidence of strangulation. > Dictated by Isael Rush MD, (family medicine resident). IMartita MD have personally reviewed and interpreted this examination/study. > Interpreting Provider: Martita Wynn MD on 05/18/2025 2:10 PM Wilson Herr MD CT ORDERABLES Final Result * LACTIC ACID BLOOD REFLEX TO REPEAT (05/18/2025 9:25 AM CDT) [facility] Lactic Acid-Stat 1.3 <=2.0 mmol/L 05/18/2025 10:05 AM CDT [facility] Blood BLOOD SPECIMEN / Unknown Venipuncture / Unknown 05/18/2025 9:25 AM CDT 05/18/2025 9:33 AM CDT Wilson Herr MD LAB - CHEMISTRY ORDERABLES Fi nal Result [address] [address], [place] [phone] * (ABNORMAL) TROPONIN-I HIGH SENSITIVE REFLEX 1HOUR (05/17/2025 6:06 PM CDT) [facility] Troponin I High Sensitive 18(H) <=14 ng/L 05/17/2025 6:47 PM CDT [facility] Delta Troponin I HS 1 <6 ng/L 05/17/2025 6:47 PM CDT [facility] Blood BLOOD SPECIMEN / Unknown Venipuncture / Unknown 05/17/2025 6:06 PM CDT 05/17/2025 6:10 PM CDT Margot Valenzuela PA-C LAB - CHEMISTRY ORDER DEJON Final Result [address] [address], [place] [phone] * EKG 12-LEAD (05/17/2025 5:51 PM CDT) [facility] Ventricular Rate 72 BPM [facility] Atrial Rate 70 BPM [facility] QRS Duration ms 170 ms [facility] Q-T Interval ms 428 ms [facility] QTC Calculation (Bezet) 468 ms [facility] Calculated R [place] -73 degrees [facility] Calculated T [place] 90 degrees [facility] Interpretation EKG Ventricula r-paced rhythm ABNORMAL ECG Confirmed by SAM JONES MD ([id number]) on 05/25/2025 9:41:50 AM [facility] 05/17/2025 5:51 PM CDT 05/25/2025 9:41 AM CDT Margot Valenzuela PA-C ECG ORDERABLES Edite d Result - Final [facility] * XR CHEST 2VW (05/17/2025 5:06 PM CDT) Anatomical Region Laterality Modality Chest Digital Radiogra phy 05/17/2025 7:24 PM CDT Narrative 05/18/2025 8:34 AM CDT PROCEDURE: XR CHEST 2VW, DATE/TIME OF EXAM: 05/17/2025 5:06 PM, LOCATION [facility] INDICATION: R07.9: Chest pain, unspecified type ADDITIONAL CLINICAL INFORMATION: Ordering Provider Reason For Exam: chest pain COMPARISON: Chest x-ray from 03/02/2024. FINDINGS/IMPRESSION: Cardiac device over right chest wall with leads terminating at right atrium and right ventricle. No new focal consolidation, pleural effusion or pneumothorax. The cardiomediastinal silhouette is stable. Aortic calcification. Asymmetric elevation of the right hemidiaphragm, similar to prior. Bibasilar atelectasis/scarring. > Dictated by Yony Marroquin MD (family medicine resident). IVolodymyr MD have personally reviewed and interpreted this examination/study. > Interpreting Provider: Volodymyr Louie MD on 05/18/2025 8:34 AM Procedure Note Volodymyr Louie MD - 05/18/2025 PROCEDURE: XR CHEST 2VW, DATE/TIME OF EXAM: 05/17/2025 5:06 PM, LOCATION [facility] INDICATION: R07.9: Chest pain, unspecified type ADDITIONAL CLINICAL INFORMATION: Ordering Provider Reason For Exam: chest pain COMPARISON: Chest x-ray from 03/02/2024. FINDINGS/IMPRESSION: Cardiac device over right chest wall with leads terminating at rightatrium and right ventricle. No new focal consolidation, pleural effusion or pneumothorax. The cardiomediastinal silhouette is stable. Aortic calcification. Asymmetric elevation of the right hemidiaphragm, similar to prior. Bibasilar atelectasis/scarring. > Dictated by Yony Marroquin MD (family medicine resident). I, Volodymyr Louie MD have personally reviewed and interpreted this examination/study. > Interpreting Provider: Volodymyr Louie MD on 05/18/2025 8:34 AM Margot Valenzuela PA-C DIAGNOSTIC IMAGING OR DERABLES Final Result * (ABNORMAL) PT-INR [facility] (05/17/2025 4:54 PM CDT) PT 15.0(H) 12.1 - 14.8 Seconds 05/17/2025 5:31 PM CDT [facility] INR 1.2 See Comment 05/17/2025 5:31 PM CDT [facility] Comment:The suggested therap eutic range for standard coumadin (warfarin) therapy is an INR of 2.0-3.0. For high-risk patients (Mechanical Mitral Valve Prosthesis, etc.), the suggested prophylactic therapeutic range is an INR of 2.5-3.5. Blood BLOOD SPECIMEN / Unknown Venipuncture / Unknown 05/17/2025 4:54 PM CDT 05/17/2025 4:57 PM CDT Margot Valenzuela PA-C LAB - COAGULATION ORD ERABLES Final Result [address] [address], [facility] [facility] [phone] * (ABNORMAL) TROPONIN-I HIGH SENSITIVE BASELINE + 1HR (05/17/2025 4:54 PM CDT) Troponin I High Sensitive 17(H) <=14 ng/L 05/17/2025 5:33 PM CDT [facility] Blood BLOOD SPECIMEN / Unknown Venipuncture / Unknown 05/17/2025 4:54 PM CDT 05/17/2025 4:59 PM CDT Margot Valenzuela PA-C LAB - CHEMISTRY ORDER DEJON Final Result [facility] [address] [place] [address], [facility] [phone] * (ABNORMAL) CBC W AUTO DIFFERENTIAL (05/17/2025 4:54 PM CDT) WBC 4.2 4.0 - 10.7 x10E9/L 05/17/2025 5:[address] [facility] RBC Count 4.77 3.90 - 5.20 x10E12/L 05/17/2025 5:[address] [facility] Hemoglobin 14.2 11.9 - 15.8 g/dL 05/17/2025 5:[address] [facility] Hematocrit 44.8 34.8 - 46.1 % 05/17/2025 5:[address] [facility] MCV 93.9 80.0 - 98.0 fL 05/17/2025 5:[address] [facility] MCH 29.8 26.7 - 33.6 pg 05/17/2025 5:[address] [facility] MCHC 31.7 31.7 - 36.3 g/dL 05/17/2025 5:[address] [facility] RDW-CV 14.9(H) 11.3 - 14.8 % 05/17/2025 5:[address] [facility] Platelet Count 119(L) 150 - 420 x10E9/L 05/17/2025 5:[address] [facility] MPV 05/17/2025 5:[address] [facility] Comment:Unable to report Neutrophil % 58.4 41.0 - 74.0 % 05/17/2025 5:[address] [facility] Lymphocyte % 26.6 17.0 - 47.0 % 05/17/2025 5:[address] [facility] Monocyte % 9.3 3.0 - 11.0 % 05/17/2025 5:58 PM CDT [facility] Eosinophil % 4.8 0.0 - 7.0 % 05/17/2025 5:58 PM CDT [facility] Basophil % 0.7 0.0 - 1.6 % 05/17/2025 5:58 PM CDT [facility] Immature Granulocytes % 0.2 0.0 - 1.0 % 05/17/2025 5:58 PM CDT [facility] Neutrophil Absolute 2.46 1.60 - 7.50 x10E9/L 05/17/2025 5:58 PM CDT [facility] Lymphocyte Absolute 1.12 1.00 - 4.40 x10E9/L 05/17/2025 5:[address] [facility] Monocyte Absolute 0.39 0.15 - 1.00 x10E9/L 05/17/2025 5:58 PM CDT [facility] Eosinophil Absolute 0.20 0.00 - 0.60 x10E9/L 05/17/2025 5:58 PM CDT [facility] Basophil Absolute 0.03 0.00 - 0.13 x10E9/L 05/17/2025 5:[address] [facility] Blood BLOOD SPECIMEN / Unknown Venipuncture / Unknown 05/17/2025 4:54 PM CDT 05/17/2025 4:59 PM CDT Margot Valenzuela PA-C LAB - HEMATOLOGY SUSIE KEBEDE Final Result [facility] [address] [place] [address], [facility] [phone] * (ABNORMAL) COMPREHENSIVE METABOLIC PANEL (05/17/2025 4:54 PM CDT) BUN 35(H) 7 - 26 mg/dL 05/17/2025 5:30 PM CDT [facility] Creatinine 1.64(H) 0.56 - 0.96 mg/dL 05/17/2025 5:30 PM T [facility] Sodium 141 136 - 145 mmol/L 05/17/2025 5:[address] [facility] Potassium 4.6(H) 3.5 - 4.5 mmol/L 05/17/2025 5:[address] [facility] Chloride 107 98 - 107 mmol/L 05/17/2025 5:[address] [facility] CO2 28 22 - 29 mmol/L 05/17/2025 5:[address] [facility] Glucose 98 70 - 99 mg/dL 05/17/2025 5:[address] [facility] Calcium 9.0 8.4 - 10.2 mg/dL 05/17/2025 5:[address] [facility] Protein Total 7.7 6.0 - 8.3 g/dL 05/17/2025 5:[address] [facility] Albumin 3.9 3.4 - 5.0 g/dL 05/17/2025 5:[address] [facility] Bilirubin Total 0.6 0.2 - 1.2 mg/dL 05/17/2025 5:[address] [facility] Alkaline Phosphatase 65 40 - 150 U/L 05/17/2025 5:[address] [facility] ALT 42 5 - 55 U/L 05/17/2025 5:[address] [facility] AST 40(H) 5 - 34 U/L 05/17/2025 5:[address] [facility] Anion Gap 6 6 - 16 05/17/2025 5:[address] [facility] BUN/Creatinine Ratio 21 7 - 23 05/17/2025 5:[address] [facility] Osmolality Calculated 300(H) 275 - 295 mOsm/kg 05/17/2025 5:[address] [facility] Albumin/Globulin Ratio 1.0(L) 1.1 - 2.3 05/17/2025 5:[address] [facility] eGFR by CKD-EPI 30(L) >=90 mL/min/1.7 3 m2 05/17/2025 5:[address] [facility] Blood BLOOD SPECIMEN / Unknown Venipuncture / Unknown 05/17/2025 4:54 PM CDT 05/17/2025 4:59 PM CDT Narrative [facility] - 05/17/2025 5:30 PM CDT Estimated Glomerular Filtration Rate (eGFR) calculated using the CKD-EPI Creatinine Equation (2020), per the National Kidney Foundation and [place] [employer] of Nephrology recommendations. Margot Valenzuela PA-C LAB - CHEMISTRY ORDER DEJON Final Result [address] [address], [place] [phone] * MAGNESIUM BLOOD (05/17/2025 4:54 PM CDT) Magnesium 2.1 1.6 - 2.6 mg/dL 05/17/2025 5:30 PM CDT [facility] Blood BLOOD SPECIMEN / Unknown Venipuncture / Unknown 05/17/2025 4:54 PM CDT 05/17/2025 4:59 PM CDT Margot Valenzuela PA-C LAB - CHEMISTRY ORDER DEJON Final Result [address] [address], [place] [phone] from Last 3 Months Insurance [facility] [place] [address] MEDICAID [employer] [place] [facility] MANAGED MEDICARE ADV Advance Directives * Full Code (Latest Code Status on File) Date Activated Date Inactivated Comments 02/10/2020 11:11 PM 02/17/2020 6:47 PM * Full Code Date Activated Date Inactivated Comments 03/13/2019 1:38 AM 03/16/2019 4:59 PM * Full Code Date Activated Date Inactivated Comments 03/12/2019 11:51 PM 03/13/2019 1:38 AM Care Teams Youth Accommodation Support Worker Relationship Specialty [place] [id number] [address] PCP - General Cardiovascular Disease 05/18/25
--- OUTSIDE RECORDS SUMMARY | 2025-07-16 14:19 | XMS_ITS | Clinical Summary ---
Author Organization [facility] Address [address] [place] [address] Care Team Providers Care Wastewater Treatment Operator Name Role Phone Unavailable Primary Care Provider Unavailabl e Social History Tobacco Use Types Packs/Day Years Used Date Smoking Tobacco: Never Assessed Comments Unknown Sex and Gender Information Value Date Recorded Sex Assigned at Not on file Legal Sex Female 6:36 PM CDT Gender Identity Not on file Sexual Orientation Not on file Plan of Treatment Health Maintenance Due Date Last Done Comments DTaP, Tdap and Td Vaccines ( 1 - Tdap) 1958 Zoster Vaccines (1 of 2) 1989 RSV Immunization or 60+ Years (1 - 1-dose 75+ series) 2014 COVID-19 Vaccine (2023-2 5 season) 2024 Pneumococcal Vaccine: 50+ Years Completed 12/16/2023, 09/09/2023, 01/23/2022 Meningococcal B Vaccine Aged Out No l onger eligible based on patient's age to complete this topic Meningococcal Vaccine Aged Out No carmelo alie eligible based on patient's age to complete this topic RSV Immunizations Under 20 Months Aged Out No longer eligible b ased on patient's age to complete this topic
--- OUTSIDE RECORDS SUMMARY | 2025-07-16 14:19 | XMS_ITS | Encounter Summary ---
Author Organization [facility] Address [address] [place] [address] Care Team Providers Care Tool And Die Repair Name Role Phone Kirk Amanda MD Primary Care Provider [phone] Funmilayo BarronW Unavailable [phone] Susan Aragon RN Unavailable [phone] Encounter Details Date Type Department Care Team (Late st Contact Info) Description 03/26/2023 Telephone [facility] Pain Mgmt [facility] [address] [address] [place], [place] Social History Tobacco Use Types Packs/Day Years Used Date Smoking Tobacco: Former Smokeless Tobacco: Never Alcohol Use Standard Drinks/Week Comments Never 0 (1 standard drink = 0.6 oz pur e alcohol) Social Connection and Isolation Panel Answer Date Recorded In a typical week, how many times do you talk on the phone with family, friends, or neighbors? Twice a week 03/05/2023 How often do you get together with friends or re latives? Once a week 03/05/2023 How often do you attend sabianist or druze serv ices? Never 03/05/2023 Do you belong to any clubs o r organizations such as sabianist groups, unions, fraternal or athletic groups, or school groups? No 03/05/2023 How often do you attend meet ings of the clubs or organizations you belong to? Never 03/05/2023 Are you , , di vorced, , never , or living with a partner? 03/05/2023 AUDIT-C Answer Date Recorded Q1: How often do you have a drink containing alcohol? Never 02/13/2023 Q2: How many drinks containi ng alcohol do you have on a typical day when you are drinking? Patient does not drink Q3: How often do you have si x or more drinks on one occasion? Never 02/13/2023 Overall Financial Resource Strain (CARDIA) Answe r Date Recorded How hard is it for you to pa y for the very basics like food, housing, medical care, and heating? Somewhat hard 03/05/2023 PHQ-2 Answer Date Recorded PHQ-2 Total Score (If total score is 3 or more points, staff should administer the PHQ-9) 2 02/13/2023 Hunger Vital Sign Answer Date Recorded Within the past 12 months, y ou worried that your food would run out before you got the money to buy more. Never true 03/05/20 Within the past 12 months, t he food you bought just didn't last and you didn't have money to get more. Never true 03/05/2023 PRAPARE - Transportation Answer Date Re corded In the past 12 months, has l ack of transportation kept you from medical appointments or from getting medications? Yes 02/22 In the past 12 months, has l ack of transportation kept you from meetings, work, or from getting things needed for daily living? Yes 03/05/2023 Housing Stability Vital Sign Answer Go e Recorded In the last 12 months, was t here a time when you were not able to pay the mortgage or rent on time? No 03/06/2023 In the last 12 months, how many places have you lived? 1 03/06/2023 In the last 12 months, was t here a time when you did not have a steady place to sleep or slept in a mcc (including now)? No 03/06/2023 Comments Unknown Sex and Gender Information Value Date Recorded Sex Assigned at Not on file Legal Sex Female 11:52 PM QUALITY FACILITATOR Gender Identity Not on file Sexual Orientation Not on file documented as of this encounter Plan of Treatment Not on file documented as of this encounter Visit Diagnoses Not on filedocumented in this encounter Additional Health Concerns Infection Onset Date Last Indicated Resolved Time COVID: Suspected 07/05/2024 07/05/2024 07/05/2024 3:20 PM CDT Ring Surveillance 07/09/2024 07/09/2024 07/14/2024 11:58 AM CDT documented as of this encounter Care Teams Tool And Die Repair Relationship Specialty Start Date End Date Kirk Amanda MD [address] [place] [address] PCP - General Internal Medicine 01/17/21 Funmilayo Barron, CAN STRIPER [address] [place], [place] [phone] Gang Investigator Finished Metal Repairer 05/01/23 07/13/23 Susan Aragon RN [address] [place], [place] [phone] P[place]ble Mill Operator 05/01/23 05/15/23 documented as of this encounter
[2025-07-16 14:21] VITALS: BP 121/98; PULSE 71; RESP 16; TEMP 36.4; O2SAT 99
[2025-07-16 15:51] LABS: Hematocrit 41.8 % (37.0-47.0); Hemoglobin 12.9 g/dL (12.0-15.0); Immature Granulocyte Percent A 0.2 % (0-0.5); Immature Platelet Fraction Pct 2.7 % (0.9-11.2); Lymphocytes Absolute Auto 1.27 K/mm3 (0.9-3.2); Mean Corpuscular HGB Conc 30.9 g/dl (32-36); Mean Corpuscular Hemoglobin 29.9 pg (26-34); Mean Corpuscular Volume 96.8 fl (80-100); Nucleated Red Blood Cells Absolute Auto 0.000 K/mm3 (0.0-0.012); Nucleated Red Blood Cells Perc 0.0 % (0.0-0.2); Platelet Count Result 151 k/mm3 (150-375); Red Blood Count 4.32 M/mm3 (4.2-5.4); White Blood Count 4.8 K/mm3 (4.5-10.0)
[2025-07-16 16:00] LABS: Alanine Aminotransferase 26 U/L (6-35); Albumin Level 3.9 g/dL (3.5-5.1); Alkaline Phosphatase 68 U/L (38-126); Anion Gap 7 mmol/L (4-12); Aspartate Amino Transferase 31 U/L (14-36); Bilirubin,Total 0.6 mg/dL (0.2-1.3); Blood Urea Nitrogen 44 mg/dL (7-17); Calcium 9.3 mg/dL (8.4-10.2); Carbon Dioxide 27 mmol/L (22-30); Chloride 103 mmol/L (98-107); Estimated Glomerular Filt Rate 28; Glucose 153 mg/dL (65-110); Potassium 4.6 mmol/L (3.4-5.0); Sodium 137 mmol/L (137-145); Total Protein 7.1 g/dL (6.3-8.2)
--- OUTSIDE RECORDS SUMMARY | 2025-07-16 16:06 | XMS_ITS | Encounter Summary ---
Author Organization [facility] Address [address] [place] [address] Care Team Providers Care Firearms Specialist Name Role Phone Kirk Amanda MD Primary Care Provider [phone] Funmilayo BarronW Unavailable [phone] Susan Aragon RN Unavailable [phone] Encounter Details Date Type Department Care Team (Late st Contact Info) Description 03/26/2023 Telephone [facility]opedic [facility] Neuroscience C[facility] Pain Mgmt [facility] [address] [address] [place], [place] Social History [...] week 03/05/2023 How often do you attend presybeterian or moravian serv ices? Never 03/05/2023 Do you belong to any clubs o r organizations such as presybeterian groups, unions, fraternal or athletic groups, or [...] place to sleep or slept in a usp (including now)? No 03/06/2023 Comments Unknown Sex and Gender Information Value Date Recorded Sex Assigned at Not on file Legal Sex Female 11:52 PM SETTLEMENT PROCESSOR Gender Identity Not on file Sexual Orientation [...] documented as of this encounter Care Teams Firearms Specialist Relationship Specialty Start Date End Date Kirk Amanda MD [address] [place] [address] PCP - General Internal Medicine 01/17/21 Funmilayo Barron, SERVICES MGR [address] [place], [place] [id number] Analysis Lead Patient Care Representative 05/01/23 07/13/23 Susan Aragon RN [address] [place], [place] [phone] Software Installer 05/01/23 05/15/23 documented as of this encounter
--- OUTSIDE RECORDS SUMMARY | 2025-07-16 16:06 | XMS_ITS | Clinical Summary ---
Author Organization [facility] Address [address] [address] Care Team Providers Care Sheet Catcher Name Role Phone Kirk Amanda MD Primary Care Provider [phone] Allergies Active Allergy Reactions Criticality Noted Date [...] 12/16/2023 Assessment & Plan (12/16/2023 3:31 PM RESEARCH TEST ENGINE EVALUATOR): Patient with rectal pain. She thinks it is secondary to hemorrhoids. Will start her on Anusol cream 3 times daily and make a referral to see blade balancer for further evaluation. Patient denied any rectal bleeding. Chronic respiratory failure with hypoxia 024 Assessment & Plan (12/16/2023 3:32 PM RESEARCH TEST ENGINE EVALUATOR): Patient is maintained on oxygen by nasal cannula at 2 liters/minute Atrial fibrillation with RVR 06/10/2023 Centrilobular emphysema 03/19/2023 Assessment & Plan (12/16/2023 3:30 PM RESEARCH TEST ENGINE EVALUATOR): Continue Symbicort Assessment & Plan (09/15/2023 12:58 [...] 03/03 Assessment & Plan (12/16/2023 3:30 PM RESEARCH TEST ENGINE EVALUATOR): Continue Lasix and low-salt diet Assessment & [...] weight renal function. Follows up with her pulmonologist, Dr. Bradley in [place] Assessment & Plan (03/18/2023 1:52 PM CDT): Continue lasix BID, BB, O2. Wean O2 as able. Monitor lytes & renal fxn. BMI 30.0-30.9,adult 02/13/2023 History of peptic ulcer disease 02/13/2023 Assessment & Plan (02/13/2023 1:46 PM CDT): Patient is asymptomatic. Continue Protonix Dyslipidemia 05/13/2022 Assessment & Plan (12/16/2023 3:30 PM RESEARCH TEST ENGINE EVALUATOR): Controlled on current medications. Continue low-fat diet. [...] 01/17/2021 Assessment & Plan (12/16/2023 3:30 PM RESEARCH TEST ENGINE EVALUATOR): Rate is controlled. She is off Eliquis because of rectal bleeding. Assessment & Plan (09/15/2023 5:52 PM CDT): Rate is controlled. She is off Eliquis because of rectal bleeding. Assessment & Plan (05/05/2023 12:19 PM CDT): Patient with chronic atrial fibrillation. We gave her samples of Eliquis. Advised to take her medications as prescribed. Advised to follow-up with her pulmonologist. Patient to check with her pulmonologist about other options if she can not afford Eliquis Assessment & Plan (03/19/2023 3:32 PM CDT): Heart rate controlled. Continue Eliquis 2.5 mg b.i.d., Coreg 25 mg b.i.d. follow-up cardiology, Dr. Bradley after discharge Assessment & Plan (02/13/2023 12:54 PM CDT): Continue Xarelto. Rate is controlled. Follow-up with the pulmonologist Assessment & Plan (05/13/2022 12:21 PM CDT): Continue Xarelto. Rate is controlled. Follow-up with the pulmonologist Assessment & Plan (01/23/2022 2:07 PM RESEARCH TEST ENGINE EVALUATOR): Heart rate is controlled. Resume Xarelto. Advised to follow up with the pulmonologist Assessment & Plan (03/22/2021 4:42 PM CDT): Rate is controlled and she is on Xarelto and followed by the pulmonologist Assessment & Plan (01/31/2021 11:56 AM RESEARCH TEST ENGINE EVALUATOR): Rate is not controlled. We added Cardizem. Continue carvedilol. She is on warfarin. Follow up with the pulmonologist. Assessment & Plan (01/17/2021 12:35 PM RESEARCH TEST ENGINE EVALUATOR): Patient is in AFib. She is on warfarin. She said somebody checks her protime on regular basis but she does not know who that nurse is an which doctor she works 4. I told her that she needs to find out and see what follows her INR. History of CVA (cerebrovascular accident) 2020 Assessment & Plan (12/16/2023 3:31 PM RESEARCH TEST ENGINE EVALUATOR): Patient with chronic dysarthria. Eliquis was stopped by the pulmonologist because of rectal bleeding. She is on baby aspirin daily. Assessment & Plan (09/15/2023 5:52 PM CDT): Patient with chronic dysarthria. Eliquis was stopped by the pulmonologist because of rectal bleeding. She is on baby aspirin daily. Assessment & Plan (02/13/2023 12:55 PM CDT): Patient with chronic dysarthria. Continue Xarelto daily Assessment & Plan (05/13/2022 9:01 AM CDT): Patient with chronic dysarthria. Continue Xarelto daily Assessment & Plan (01/23/2022 12:52 PM RESEARCH TEST ENGINE EVALUATOR): Patient has chronic dysarthria. She is maintained on Xarelto Assessment & Plan (03/22/2021 4:41 PM CDT): Patient has dysarthria. She is maintained on Xarelto. No bleeding. Discussed the importance of compliance with medications Assessment & Plan (01/31/2021 11:55 AM RESEARCH TEST ENGINE EVALUATOR): Continue current medications including warfarin. The patient does INR at home. It is done through home care nurse and we will try to reach to them to get the results Assessment & Plan (01/17/2021 12:35 PM RESEARCH TEST ENGINE EVALUATOR): Patient complains of headache and dizziness and she had couple of syncopal episodes when she tried to stand up. Will obtain MRI of the brain for further evaluation. Patient was advised to discuss her symptoms with her pulmonologist as well. Hypertensive kidney disease with stage [...] monitor Assessment & Plan (01/23/2022 2:07 PM RESEARCH TEST ENGINE EVALUATOR): Will resume all her medications. Continue low-salt diet Assessment & Plan (03/22/2021 4:42 PM CDT): Will add amlodipine 5 mg daily for better control of high blood pressure Assessment & Plan (01/31/2021 11:56 AM RESEARCH TEST ENGINE EVALUATOR): Blood pressure is elevated and the patient has tachycardia. Will add Cardizem 120 mg daily and she will follow-up with pulmonologist Assessment & Plan (01/17/2021 12:35 PM RESEARCH TEST ENGINE EVALUATOR): Continue current medications. Discussed low-salt diet. Discussed [...] 03/11/[address] Berg. Continue gabapentin + [place]. Pain overall controlled. Monitor Assessment & Plan (03/18/2023 1:53 PM CDT): status post epidural steroid injection on 03/11/[address] Berg. Continue gabapentin + [place]. Stage 4 chronic kidney disease Assessment & Plan (12/16/2023 3:31 PM RESEARCH TEST ENGINE EVALUATOR): Avoid NSAIDs and nephrotoxins and follow-up with the hair dryer Assessment & Plan (09/15/2023 12:59 PM CDT): Avoid NSAIDs and nephrotoxins and follow-up with the hair dryer Assessment & Plan (05/05/2023 12:20 PM CDT): Avoid NSAIDs and nephrotoxins and follow-up with the hair dryer Assessment & Plan (04/10/2023 3:12 PM CDT): [...] (11/06/2022): Added automatically from request for surgery [id number] Vitamin D deficiency 01/23/2022 023 Assessment & Plan (03/19/2023 3:41 PM CDT): Vitamin-D 115 in 10/2022. Will recheck level next lab Assessment & Plan (01/23/2022 2:08 PM RESEARCH TEST ENGINE EVALUATOR): Continue vitamin-D 62398 units once a week Dermatitis 03/22/2021 04/01/2023 [...] she will have echocardiogram and follow-up with pulmonologist Assessment & Plan (01/17/2021 12:37 PM RESEARCH TEST ENGINE EVALUATOR): Patient complains of shortness breath with exertion. She is not in respiratory distress. She was advised to discuss her symptoms with her pulmonologist and hair dryer. I wonder if she has history of congestive heart failure. Will try to obtain her old record. Stage 3a chronic kidney disease 12/19/2020 03/18/2023 Assessment & Plan (02/13/2023 12:55 PM CDT): Avoid nephrotoxins. Follow-up with the hair dryer Assessment & Plan (05/13/2022 12:21 PM CDT): Avoid nephrotoxins. Follow-up with the hair dryer Assessment & Plan (01/23/2022 2:08 PM RESEARCH TEST ENGINE EVALUATOR): Managed by the hair dryer. Avoid nephrotoxins. I have advised to follow-up with the hair dryer Assessment & Plan (03/22/2021 4:42 PM CDT): Managed by the hair dryer Assessment & Plan (01/31/2021 11:56 AM RESEARCH TEST ENGINE EVALUATOR): Managed by the hair dryer Assessment & Plan (01/17/2021 12:35 PM RESEARCH TEST ENGINE EVALUATOR): Followed by the hair dryer Atypical chest pain 03/24/20 Acute kidney injury [...] Type Department Care Team Description 06/21/2025 Telephone [facility] at [address] [place] [address] Gurmeet Cabrera MD from Last [...] drink = 0.6 oz pur e alcohol) [facility] Utilities Answer Date Recorded In the past 12 months has e electric, gas, oil, or water [employer] threatened to shut off services in your [...] answer 07/13/2024 How often do you attend [facility] or [facility] services? Patient unable to answer 07/13/2024 Do you belong to any clubs o r organizations such as worship groups, unions, fraternal or athletic groups, or [...] place to sleep or slept in a assisted (including now)? No 05/01/2023 Housing Stability Vital [...] any time in the past 12 m [facility], were you homeless or living in a assisted (including now)? Patient unable to answer 07/13/2024 Personal Safety Answer Date Recorded Have you ever been in or are you currently in a harmful physical or emotional relationship or is someone making you feel afraid or unsafe? Denies 12/24/2024 Comments No Sex and Gender Information Value Date Recorded Sex Assigned at Not on file Legal Sex Female 11:52 PM RESEARCH TEST ENGINE EVALUATOR Gender Identity Not on file Sexual Orientation Not on file Obstetrics History Last Filed Vital Signs Vital Sign Reading Time Taken Comments Blood Pressure 158/72 12/24/2024 2:40 PM RESEARCH TEST ENGINE EVALUATOR Pulse 80 12/24/2024 2:40 PM RESEARCH TEST ENGINE EVALUATOR Temperature 36.6 C (97.8 F) 12/24/2024 2:13 PM RESEARCH TEST ENGINE EVALUATOR Respiratory Rate 14 12/24/2024 2:40 PM RESEARCH TEST ENGINE EVALUATOR Oxygen Saturation 97% 12/24/2024 2:40 PM RESEARCH TEST ENGINE EVALUATOR Inhaled Oxygen Concentration - - Weight 97.1 kg (214 lb) 12/24/2024 12:00 PM RESEARCH TEST ENGINE EVALUATOR Height 165.1 cm (5' 5) 07/02/2024 6:40 [...] CREATININE RATIO, URINE Routine 11/13/2022 9:06 PM RESEARCH TEST ENGINE EVALUATOR from Last 3 Months or Most Recently [...] LAB BLOOD ORDERABL ES Final Result [facility] Department [place] [address] * (ABNORMAL) Hemoglobin A1c (07/02/2024 4:48 PM CDT) Hgb A1C 6.0(H) 4.0 - 5.6 % Estimated Average Glucose 126 mg/dL [facility] Comment: The ADA recommends reporting an estimated [...] LAB BLOOD ORDERABLES Final Resul t [facility] Department [place] [address] * (ABNORMAL) Lipid panel (06/10/2023 11:53 PM CDT) Pathologist [facility] Cholesterol 133 30 - 199 mg/dL [facility] Comment: Interpretive Data Ages < or = [...] revised on 2018. Triglycerides 68 <=149 mg/dL [facility] Comment: Interpretive Data Ages < or = [...] revised on 2018. HDL 38(L) >=40 mg/dL [facility] Comment: Interpretive Data Ages < or = [...] on 2018. LDL, calculated 81 <=129 mg/dL [facility] Comment: Interpretive Data Ages < or = [...] revised on 2018. Non-HDL Cholesterol 95 mg/dL [facility] Comment: Interpretive Data Ages < or = [...] last revised on 2018. Chol/HDL ratio 4 [facility] Blood 06/10/2023 11:5 3 PM CDT 06/11/2023 12:45 AM CDT us César Fraser MD LAB BLOOD ORDERABLES Tosin l Result [facility] Department [place] [address] * Albumin Creatinine Ratio, Urine (11/13/2022 9:06 PM RESEARCH TEST ENGINE EVALUATOR) Albumin Ur <12.0 mg/L [facility] Comment: Interpretive Data No reference range established. Current interpretive data was last revised 2019. Creatinine Ur 182.0 mg/dL [facility] Comment: Interpretive Data No reference range established. Current interpretive data was last revised 2019. Albumin Creatinine Ratio, Ur <7 1 - 29 mg/g [facility] Urine 11/13/2022 9:06 PM RESEARCH TEST ENGINE EVALUATOR 11/13/2022 9:21 PM RESEARCH TEST ENGINE EVALUATOR us Garry Woo MD LAB URINE ORDERABLES Final Resu lt [facility] [address] [facility] Department [place] [address] from Last 3 Months or Most Recently Relevant to Health Maintenance Insurance [facility] MEDICARE ADVANTAGE [facility] MEDIC[facility] Address: [address] [address] [place] [address] [facility] MEDICARE ADVANTAGE [facility] MED[facility] Address: [address] [address] [place] [address] [employer] [facility] MEDICARE ADVANTAGE [facility] MEDICARE ADVANTAGE [facility] MEDIC[facility] Address: [facility] [address] [place] [address] Advance Directives For more information, please contact: [phone] * Full Code (Latest Code Status on [...] 3:22 AM 11/07/2022 12:59 PM Care Teams Sheet Catcher Relationship Specialty Start Date End Date Kirk Amanda MD [address] [facility] [address] [address] PCP - General Internal Medicine 01/17/21
[2025-07-16 16:14] LABS: INR 1.2; Prothrombin Time 15.1 Seconds (11.1-14.7)
[2025-07-16 16:15] LABS: Partial Thromboplastin Time 33.3 Seconds (22.3-36.8)
--- NOTE | 2025-07-16 16:35 | ED_ITS ---
HPI - General Adult General Chief complaint: GI Bleed Stated complaint: blood in stool Time Seen by Provider: 07/16/25 15:13 History of Present Illness HPI narrative: Patient is an 84-year-old female who presents the ER with blood in her stool. Reports it has been had an annular she regular frequency since having a unknown surgery several years ago. Patient's residential paperwork shows that she does have history of hemorrhoids. She reports bleeding is increased recently. Patient does take Eliquis. Denies constipation or straining. No fevers or chills or sweats. No syncope. Related Data Allergies Allergy/AdvReac Type Severity Reaction Status Date / Time aspirin Allergy Intermediate Itching Verified 07/16/25 14:29 BRANDI Inhibitors Allergy Unknown Unknown Verified 07/16/25 14:29 amlodipine Allergy Unknown Unknown Verified 07/16/25 14:29 nifedipine Allergy Unknown Unknown Verified 07/16/25 14:29 nitroglycerin Allergy Unknown Unknown Verified 07/16/25 14:29 peach Allergy Unknown Unknown Verified 07/16/25 14:29 propoxyphene Allergy Unknown Unknown Verified 07/16/25 14:29 valsartan Allergy Unknown Unknown Verified 07/16/25 14:29 Review of Systems 2 Review of Systems: All systems reviewed & are unremarkable except as noted in HPI and below Constitutional: Constitutional: Reports no additional constitutional complaints ENT: Reports system reviewed and no additional complaints, except as documented Cardiovascular: Cardiovascular: Reports no additional cardiovascular complaints Respiratory: Respiratory: Reports no additional respiratory complaints Gastrointestinal: Gastrointestinal: Reports no additional gastrointestinal complaints PMFSH Past Medical History Medical History (Updated 07/16/25 @ 16:39 by Mateo Reynolds MD) Hemorrhoids Hypertension Diabetes Exam 2 Narrative: GENERAL: Well-appearing, well-nourished, and in no acute distress. HEAD: Normocephalic, atraumatic. ENT: Mucous membranes moist. CHEST: Clear to auscultation. No respiratory distress. HEART: Regular rate and rhythm. Normal peripheral pulses. ABDOMEN: Soft, nontender, nondistended. Rectal: External hemorrhoids without evidence of bleeding, digital rectal exam without gross blood and scant stool that is very light brown. No fissures noted. EXTREMITIES: Normal range of motion. No edema. SKIN: Warm, dry, no rash. NEURO: Alert and oriented x3. PSYCH: Normal mood and affect. Course Course Emergency Course: Suspect intermittent bleeding from hemorrhoids. Will place on stool softener and topical witch Ruba. Recommend follow-up with PCP or General surgery for further evaluation. Hemodynamically stable with a normal hemoglobin and white blood cell count and unremarkable exam. Vital Signs Vital signs: Vital Signs Temperature 97.6 F 07/16/25 14:21 Pulse Rate 71 07/16/25 14:21 Respiratory Rate 16 07/16/25 14:21 Blood Pressure 121/98 H 07/16/25 14:21 Pulse Oximetry 99 07/16/25 14:21 Oxygen Delivery Room Air 07/16/25 14:21 Temperature 97.6 F 07/16/25 14:21 Pulse Rate 71 07/16/25 14:21 Respiratory Rate 16 07/16/25 14:21 Blood Pressure 121/98 H 07/16/25 14:21 Pulse Oximetry 99 07/16/25 14:21 Oxygen Delivery Room Air 07/16/25 14:21 Medical Decision Making Vital Signs Vital Signs: Vital Signs Temperature 97.6 F 07/16/25 14:21 Pulse Rate 71 07/16/25 14:21 Respiratory Rate 16 07/16/25 14:21 Blood Pressure 121/98 H 07/16/25 14:21 Pulse Oximetry 99 07/16/25 14:21 Oxygen Delivery Room Air 07/16/25 14:21 Temperature 97.6 F 07/16/25 14:21 Pulse Rate 71 07/16/25 14:21 Respiratory Rate 16 07/16/25 14:21 Blood Pressure 121/98 H 07/16/25 14:21 Pulse Oximetry 99 07/16/25 14:21 Oxygen Delivery Room Air 07/16/25 14:21 Lab Data 07/16/25 15:42 07/16/25 15:42 Labs: Lab Results 07/16/25 Range/Units 15:42 WBC 4.8 (4.5-10.0) K/mm3 RBC 4.32 (4.2-5.4) M/mm3 Hgb 12.9 (12.0-15.0) g/dL Hct 41.8 (37.0-47.0) % MCV 96.8 (80-100) fl MCH 29.9 (26-34) pg MCHC 30.9 L (32-36) g/dl RDW 13.9 (11.5-14.5) % Plt Count 151 (150-375) k/mm3 MPV 10.0 (7.4-10.4) fl Immature Gran % (Auto) 0.2 (0-0.5) % Neut % (Auto) 54.6 (45.5-73.1) % Lymph % (Auto) 26.7 (18.3-44.2) % [place] % (Auto) 11.2 H (2.6-8.5) % Eos % (Auto) 6.7 H (0-4.4) % Baso % (Auto) 0.6 (0.2-1.2) % Lymph # (Auto) 1.27 (0.9-3.2) K/mm3 [place] # (Auto) 0.5 (0.1-0.6) K/mm3 Eos # (Auto) 0.3 (0-0.3) K/mm3 Baso # (Auto) 0.0 (0.0-0.1) K/mm3 Abs Immat Gran (auto) 0.01 (0.00-0.031) K/mm3 Absolute Neuts (auto) 2.6 (1.3-6.7) K/mm3 Absolute Nucleated RBC 0.000 (0.0-0.012) K/mm3 Nucleated RBC % 0.0 (0.0-0.2) % % Immature Plt Fraction 2.7 (0.9-11.2) % PT 15.1 H (11.1-14.7) Seconds INR 1.2 APTT 33.3 (22.3-36.8) Seconds Sodium 137 (137-145) mmol/L Potassium 4.6 (3.4-5.0) mmol/L Chloride 103 (98-107) mmol/L Carbon Dioxide 27 (22-30) mmol/L Anion Gap 7 (4-12) mmol/L BUN 44 H (7-17) mg/dL Creatinine 1.72 H (0.7-1.0) mg/dL Estim Creat Clear Calc Not Reportable Estimated GFR 28 L (59 - ) Glucose 153 H (65-110) mg/dL Calcium 9.3 (8.4-10.2) mg/dL Total Bilirubin 0.6 (0.2-1.3) mg/dL AST 31 (14-36) U/L ALT 26 (6-35) U/L Alkaline Phosphatase 68 (38-126) U/L Total Protein 7.1 (6.3-8.2) g/dL Albumin 3.9 (3.5-5.1) g/dL Discharge Plan Discharge Clinical Impression: Hemorrhoids Patient Disposition: Home Condition: Stable Instructions: Hemorrhoids (ED) Additional Instructions: Return the ER if you have fever 100.4? F, you can not keep down food or water, you have worsening bleeding from her rectum, or you have additional concerns. Patient Language: Bruneian Prescriptions: New docusate sodium [Col-Rite] 100 mg capsule 100 mg PO DAILY Qty: 10 0RF Tucks (witch ruba) 50 % pads, medicated 1 pad topical BID Qty: 40 0RF Follow-up/Referrals: Donte,MD Maycol [Primary Care Provider, Unknown] - 1 Week
--- NOTE | 2025-07-16 16:51 | PC.NURSE ---
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
--- NOTE | 2025-07-16 17:34 | PC.NURSE ---
Spoke with Kayla at [facility]-their transporter will be going to cotton picker their van and patients wheelchair. Approx ETA 60 min. Yaima Heart RN made aware
[2025-07-16 17:37] VITALS: BP 149/77; PULSE 82; RESP 16; O2SAT 99
== END 2025-07-16 18:19 | disposition home or self-care (01) ==
PROVIDERS: Emergency Provider Emergency Medicine; PCP Internal Medicine
DX: K64.4 Residual hemorrhoidal skin tags (principal); I10 Essential (primary) hypertension; E11.9 Type 2 diabetes mellitus without complications; Z79.01 Long term (current) use of anticoagulants
CPT/HCPCS: 36415; 80053; 85025; 85055; 85610; 85730; 99283